=== PATIENT | male | born 1945 | race Caucasian/White ===

== ENCOUNTER 2019-12-14 10:34 | Outpatient (CLI) | payer MEDICARE, OTHER, SELFPAY ==
--- NOTE | 2019-12-14 10:48 | XR_ITS ---
WS: [id number] RIGHT ANKLE: 3 VIEW(S) TECHNIQUE: AP, oblique(s) and lateral. HISTORY: PAIN IN RIGHT ANKLE AND JOINTS OF RIGHT FOOT COMPARISON: None available. Normal anatomic alignment with no fracture or dislocation. No joint effusion or widening of the ankle mortise. Several small osseous densities at the ankle joint with narrowing of the ankle joint. Osteochondral l esion well-corticated involving the lateral dome of the talus. No soft tissue abnormality. XR/XR ankle RT min 3V* [id number] IMPRESSION: 1. No acute fracture. 2. Mild degenerative changes at the ankle joint and a well-corticated osteocho ndral lesion lateral talar dome.
== END 2019-12-14 10:35 | disposition home or self-care (01) ==
LOC: RADWPI 10:41
PROVIDERS: Family Provider Family Medicine; PCP Family Medicine; Visit Provider Nurse Practitioner Family
DX: M25.571 Pain in right ankle and joints of right foot (principal); M19.071 Primary osteoarthritis, right ankle and foot
CPT/HCPCS: 73610

== ENCOUNTER → 2020-01-17 08:22 | Outpatient (BNVA) | payer MEDICARE, OTHER, SELFPAY | PROVIDERS: Family Provider Family Medicine; PCP Family Medicine; Referring Provider Nurse Practitioner Family; Visit Provider Podiatrist Foot & Ankle Surgery | DX: M79.671 Pain in right foot (principal); M25.571 Pain in right ankle and joints of right foot; Z46.89 Encounter for fitting and adjustment of other specified devices; M19.071 Primary osteoarthritis, right ankle and foot | CPT/HCPCS: 73610; 73630; L1902 ==

== ENCOUNTER 2020-01-17 10:07 | Outpatient (CLI) | payer MEDICARE, OTHER, SELFPAY | END 2020-01-17 10:08 | disposition home or self-care (01) | LOC: SPT 10:08 | PROVIDERS: Family Provider Family Medicine; PCP Family Medicine; Visit Provider Podiatrist Foot & Ankle Surgery | DX: Z46.89 Encounter for fitting and adjustment of other specified devices (principal); M19.071 Primary osteoarthritis, right ankle and foot | CPT/HCPCS: L1902 ==

== ENCOUNTER 2021-03-06 12:47 | Outpatient (CLI) | payer MEDICARE, OTHER, SELFPAY ==
--- NOTE | 2021-03-06 13:00 | MR_ITS ---
WS: [id number] MRI BRAIN WITH HIGH-RESOLUTION IMAGING THROUGH THE INTERNAL AUDITORY CANALS WITHOUT AND WITH CONTRAST HISTORY: SENSORINEURAL HEARING LOSS, bilateral hearing loss for 3 to 4 years. COMPARISON: None available. TECHNIQUE: Multiplanar, multisequence imaging is performed through the brain. Additional 3 mm imaging performed in multiple planes through the internal auditory canal. Postcontrast imaging with 20 ml's of MultiHance. No acute intracranial hemorrhage, midline shift, edema or mass effect. Mild chronic microvascular ischemic disease. Subcortical and deep white matter microvascular ischemic changes. Small amount of microvascular ischemic disease in the rodrigo bilaterally. No prior infarcts. Small lacunar infarct LEFT insular ribbon. Mild bilateral symmetric atrophy. Ventricles and extra-axial spaces are normal. No inferior displacement of cerebellar tonsils. Clivus and pituitary gland are normal. Internal and external auditory canals: Soft tissue mass centered within the RIGHT intracanalicular an d extracanalicular portion of the RIGHT internal auditory canal. Mass is slightly lobulated extending over a width of 8.4 mm x 6.7 mm. No abnormal signal in the LEFT internal auditory canal. Paranasal sinuses: Mild mucoperiosteal thickening throughout the paranasal sinuses. No air-fluid leve ls. Mastoid air cells: Bilateral mastoid air cell effusions, greatest on the LEFT. Calvarium and scalp: Normal. Visualized [place] and dural venous sinuses demonstrate no abnormality. MR/MR iac's wo/w con* [id number] IMPRESSION: 1. RIGHT vestibular schwannoma involving portions of the intracanalicular and extracanalicular portions of the internal auditory canal. Enhancing soft tissue lobulated mass measures 8.4 x 6.7 mm. 2. Normal LEFT internal auditory canal. 3. Mild chronic microvascular ischemic changes in the supratentorial white mat ter and the rodrigo.
[2021-03-06 13:42] LABS: Blood Urea Nitrogen 18 mg/dL (8-23)
[2021-03-06] MEDS: gadobenate dimeglumine 20 mL vial IV (13:44)
== END 2021-03-06 12:48 | disposition home or self-care (01) ==
PROVIDERS: PCP Family Medicine; Visit Provider Otolaryngology
DX: H90.3 Sensorineural hearing loss, bilateral (principal); D36.10 Benign neoplasm of peripheral nerves and autonomic nervous system, unspecified
CPT/HCPCS: 70553; 82565; 84520; A9577

== ENCOUNTER 2021-08-24 11:00 | Outpatient (CLI) | payer MEDICARE, OTHER, SELFPAY ==
--- NOTE | 2021-08-24 11:07 | XR_ITS ---
WS: [id number] Right ankle, 3 views, 08/24/2021 Clinical Data: CHRONIC PAIN OF R ANKLE JOINTS Comparison: None. Findings: No fractures or dislocations are seen. The ankle mortise is normal. The talus and calcaneus are unrem arkable. No soft tissue swelling over the medial or lateral malleolus is seen. There is minimal calcification of the terrell of small vessels. There are unfused ossicles inferior to the tip of the medial malleolus. There is a plantar spur. No periarticular demineralization is seen. XR/XR ankle RT min 3V* [id number] Impression: Negative right ankle.
--- NOTE | 2021-08-24 11:07 | XR_ITS ---
WS: [id number] Right foot, 3 views, 08/24/2021 Clinical Data: CHRONIC PAIN IN R FOOT Comparison: None. Findings: No fractures or dislocations are seen. No bone destruction or erosion is noted. The joint spaces and soft tissues are normal. No periarticular demineralization or calcifications are seen. There is a plantar spur. XR/XR foot RT min 3V* [id number] Impression: Negative right foot.
== END 2021-08-24 11:01 | disposition home or self-care (01) ==
LOC: RAD 11:06
PROVIDERS: PCP Nurse Practitioner; Visit Provider Nurse Practitioner
DX: M79.671 Pain in right foot (principal); M25.571 Pain in right ankle and joints of right foot; G89.29 Other chronic pain
CPT/HCPCS: 73610; 73630

== ENCOUNTER 2021-11-01 07:22 | Outpatient (CLI) | payer MEDICARE, OTHER, SELFPAY ==
--- NOTE | 2021-11-01 07:48 | USCV_ITS ---
Teja Elizabeth Age: 76 Gender: M : 1945 Exam Date: 11/01/2021 07:52 Ordering Phys: Haydee Rodriguez APN Technologist: aLurie Watts Exam Location: [facility] – [place], [place] Indication: SCREENING FOR AAA HISTORY: Screening for AAA Diameter (cm) AP x Transverse x Length Velocity (cm/s) Waveform Prox Aorta: 1.78 x 2.13 x 130.30 Mid Aorta: 1.92 x 2.25 x 104.00 Distal Aorta: 1.78 x 2.01 x 94.30 Right Iliac Prox: 1.09 x 1.50 x 94.30 Left Iliac Prox: 0.98 x 1.56 x 79.00 Stent Prox Landing x x Aneurysmal Sac Max x x Lt Lat Sac Dim Rt Lat Sac Dim Stent Dist Landing x x Right Iliac Stent x x Left Iliac Stent x x Right Renal Art Left Renal Art FINDINGS: CONCLUSIONS No evidence of abdominal aortic or bilateral iliac aneurysm. Alvino Saldivar MD (Electronically Signed) Final Date: 01 November 2021 12:46 S
== END 2021-11-01 07:23 | disposition home or self-care (01) ==
PROVIDERS: PCP Nurse Practitioner; Visit Provider Nurse Practitioner
DX: Z13.6 Encounter for screening for cardiovascular disorders (principal)
CPT/HCPCS: 76706

== ENCOUNTER 2021-11-06 10:11 | Outpatient (CLI) | payer MEDICARE, OTHER, SELFPAY ==
[2021-11-06 10:28] VITALS: BP 163/79; PULSE 66; RESP 17; TEMP 36.6; O2SAT 95; BMI 33.4
[2021-11-06 11:14] VITALS: BP 171/83; PULSE 65; RESP 18; TEMP 36.5; O2SAT 94
[2021-11-06 12:14] VITALS: BP 158/83; PULSE 66; RESP 17; TEMP 36.4; O2SAT 96
== END 2021-11-06 12:14 | disposition home or self-care (01) ==
LOC: OPS 10:17
PROVIDERS: PCP Nurse Practitioner; Visit Provider Nurse Practitioner Family
DX: U07.1 COVID-19 (principal)
CPT/HCPCS: 96365

== ENCOUNTER → 2021-11-15 14:12 | Outpatient (BNVA) | payer MEDICARE, OTHER, SELFPAY | PROVIDERS: PCP Nurse Practitioner; Referring Provider Nurse Practitioner; Visit Provider Surgery | DX: Z11.52 Encounter for screening for COVID-19 (principal); K92.1 Melena | CPT/HCPCS: 87635 ==

== ENCOUNTER 2022-01-17 08:52 | Day surgery (SDC) | payer MEDICARE, OTHER, SELFPAY ==
[2022-01-14 14:04] VITALS: BMI 33.7
--- NOTE | 2022-01-17 09:18 | ANES.PREANE2 ---
Pre-Anesthetic Assessment Height/Weight: Height 1.73 m Weight 100.698 kg Preop Diagnosis: Blood in stool Operation Date: 01/17/22 10:30 Proposed Procedures p Colonoscopy 75401/k92.1(Not Applicable) - Jeremias Roberts MD Familial anesthetic complications: None Was Beta Ana taken within 24 hours: N/A Was Clonidine taken within 24 hours: N/A Social No alcohol and No tobacco Exam alert, oriented x 3, clear to auscultation bilaterally and regular rate & rhythm Airway Submandibular: within normal limits Cervical ROM: Other (Very limited extension) Mallampati: Class III Dentition: false CV/HEM Hypertension and Murmur Metabolic Morbid Obesity [facility] Osteoarthritis/DJD Anesthetic Plan ASA status: 2 Anesthesia: MAC Risk of > 500 ml blood loss (7ml/kg in children): No Medications/Allergies Home Medications Medication Instructions Recorded Confirmed Last Taken Type amlodipine 10 mg tablet 10 mg PO DAILY 01/17/20 01/14/22 Unknown History duloxetine 30 mg capsule,delayed 30 mg PO DAILY 01/17/20 01/14/22 Unknown History release hydrochlorothiazide 12.5 mg capsule 12.5 mg PO DAILY 01/17/20 01/14/22 Unknown History ibuprofen 800 mg tablet 800 mg PO DAILY 01/17/20 01/14/22 Unknown History lisinopril 10 mg tablet 10 mg PO DAILY 01/17/20 01/14/22 Unknown History terbinafine HCl 250 mg tablet 250 mg PO DAILY #30 tab 12/07/21 01/14/22 Unknown Rx Allergies Allergy/AdvReac Type Severity Reaction Status Date / Time No Known Allergies Allergy Verified 01/09/22 08:23 [facility] Anesthesia Medical History Arthritis Hypertension Surgical History History of shoulder surgery Family History Other Cancer Diabetes Social History Smoking and tobacco status: former smoker Alcohol intake: never Household members: spouse Marital status: Current occupational status: employed Current occupation: [employer] Anesthesia Cardiac Studies: No Data to Display
[2022-01-17 09:29] VITALS: BP 195/97; PULSE 70; RESP 18; TEMP 36.6; O2SAT 97
[2022-01-17] MEDS: sodium chloride 0.9% 1,000 ML 30 ML IV (09:34)
--- NOTE | 2022-01-17 09:39 | P.HP_ITS ---
Same Day Surgery H&P Indication for Procedure/HPI DATE OF PROCEDURE: January 17, 2022 CHIEF COMPLAINT/INDICATIONFOR SURGICAL PROCEDURE: Blood in stool PREOP DIAGNOSIS: Blood in stool PLANNED PROCEDURE: Operation Date: 01/17/22 10:30 Proposed Procedures p Colonoscopy 00996/k92.1(Not Applicable) - Jeremias Roberts MD 11/15/21 This is a pleasant 76 years old gentleman comes today escorted by his gives history of colon polyps that he had a colonoscopy many years ago. Also he reports blood in stool. Denies history of colon cancer or weight loss. 01/07/22 Patient comes today for diagnostic colonoscopy ROS All systems all systems have been reviewed negative except as per the above or per problem list Medications/Allergies* Home Medications Medication Instructions Recorded Confirmed Type amlodipine 10 mg tablet 10 mg PO DAILY 01/17/20 01/14/22 History duloxetine 30 mg capsule,delayed 30 mg PO DAILY 01/17/20 01/14/22 History release hydrochlorothiazide 12.5 mg capsule 12.5 mg PO DAILY 01/17/20 01/14/22 History ibuprofen 800 mg tablet 800 mg PO DAILY 01/17/20 01/14/22 History lisinopril 10 mg tablet 10 mg PO DAILY 01/17/20 01/14/22 History Allergies/Adverse Reactions Allergy/AdvReac Type Severity Reaction Status Date / Time No Known Allergies Allergy Verified 01/17/22 09:40 Current Medications: Generic Name Dose Route Start Last Admin Trade Name Freq PRN Reason Stop Dose Admin Sodium Chloride 1,000 mls @ 30 mls/hr 01/17/22 09:15 01/17/22 09:34 Sodium Chloride 0.9% IV 30 mls/hr .Q24H CARI Administration Pertinent History/Comorbid Conditions* Medical History (Updated 12/02/21 @ 12:20 by Kyle Ovalles DPM) Arthritis Hypertension Surgical History (Updated 01/19/20 @ 20:37 by Kyle Ovalles DPM) History of shoulder surgery Family History (Updated 01/17/20 @ 08:13 by Lilly Ojeda LPN) Diabetes Cancer Social History Smoking and tobacco status: former smoker Alcohol intake: never Household members: spouse Marital status: Current occupational status: employed Current occupation: [employer] Pertinent Exam Findings alert, oriented x 3, regular rate & rhythm and procedure specific exam findings (Abdominal examination nontender nondistended soft,ruq scar) Recommendations Surgery/Procedure today (Colonoscopy with possible biopsy) Coding Level of Care Code Acute Vehicle Calibration Engineer for Abdiel Moreno
[2022-01-17 12:02] VITALS: BP 138/70; PULSE 72; RESP 13; TEMP 36.6; O2SAT 93
[2022-01-17 12:19] VITALS: BP 147/91; PULSE 71; RESP 16; O2SAT 94
--- NOTE | 2022-01-17 12:35 | ANE.PACU2 ---
Inpatient post-anesthesia follow up: Airway intact: Yes Vital signs: Temperature 97.9 F Pulse Rate 71 Respiratory Rate 16 Blood Pressure 147/91 Pulse Oximetry 94 Oxygen Delivery Me thod Room Air Oxygen Flow Rate Fraction of Inspir ed Oxygen Hydration adequate: Yes Nausea and vomiting: No Pain level: 1 Mental status: Baseline
== END 2022-01-17 12:30 | disposition home or self-care (01) ==
PROVIDERS: PCP Nurse Practitioner; Visit Provider Surgery
PROC: 0DJD8ZZ Inspection of Lower Intestinal Tract, Via Natural or Artificial Opening Endoscopic (ICD-10-PCS; CPT 45378; principal; 2022-01-17 10:30)
DX: K92.1 Melena (principal); M19.90 Unspecified osteoarthritis, unspecified site; I10 Essential (primary) hypertension; Z87.891 Personal history of nicotine dependence; K57.30 Diverticulosis of large intestine without perforation or abscess without bleeding; E66.01 Morbid (severe) obesity due to excess calories; Z68.33 Body mass index [BMI] 33.0-33.9, adult
CPT/HCPCS: 45378; J2704; J7030

== ENCOUNTER → 2022-01-30 09:41 | Outpatient (BNVA) | payer MEDICARE, OTHER, SELFPAY | PROVIDERS: PCP Nurse Practitioner; Visit Provider Surgery | DX: K57.90 Diverticulosis of intestine, part unspecified, without perforation or abscess without bleeding (principal) | CPT/HCPCS: 99213 ==

== ENCOUNTER 2022-03-03 11:10 | Inpatient (IN) | payer MEDICARE, OTHER, SELFPAY ==
[2022-03-03] VITALS (9 sets, daily range): BP systolic 145–185; BP diastolic 69–99; PULSE 57–100; RESP 16–17; TEMP 36.6–36.9; O2SAT 94–98
--- NOTE | 2022-03-03 11:28 | ECG_ITS ---
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 Measurements Intervals [place] Rate: 62 P: 82 VT: 195 QRS: -12 QRSD: 97 T: 60 QT: 326 QTc: 332 Interpretive Statements SINUS RHYTHM INCOMPLETE RIGHT BUNDLE BRANCH BLOCK [90+ ms QRS DURATION, TERMINAL R IN V1/V2, 40+ ms S IN I/aVL/V4/V5/V6] NONSPECIFIC ST & T-WAVE ABNORMALITY Compared to ECG 03/03/2022 11:20:08 No significant changes Electronically Signed On 03-04-2022 17:38:39 CDT by Kori Byrd M.D. [id number]
--- NOTE | 2022-03-03 11:28 | XRR_ITS ---
PROCEDURE INFORMATION: Exam: XR Chest Exam date and time: 03/03/2022 11:34 AM Age: 76 years old Clinical indication: Pain; Chest pressure; Additional info: Chest pain TECHNIQUE: Imaging protocol: XR of the chest. Views: 1 view. COMPARISON: CT neck w con* [id number] 10/26/2015 3:06 PM FINDINGS: Lungs: Unremarkable. No consolidation. Pleural spaces: Unremarkable. No pleural effusion. No pneumothorax. Heart/Mediastinum: Unremarkable. No cardiomegaly. Bones/joints: Unremarkable. XR/XR chest 1V portable [id number] IMPRESSION: No acute findings.
--- NOTE | 2022-03-03 11:28 | W.ED.CHESTPA ---
HPI - Chest Pain General: Chief Complaint: Chest Pain Stated Complaint: high BP/heaviness in chest Time Seen by Provider: 03/03/22 11:25 PFSH ED PFSH: Medical History Arthritis Hypertension Surgical History History of shoulder surgery Family History Other Cancer Diabetes Social History Smoking and tobacco status: former smoker Alcohol intake: never Household members: spouse Marital status: Current occupational status: employed Current occupation: [employer] Vital Signs: Vital signs: Vital Signs Temperature 98.0 F 03/03/22 11:18 Pulse Rate 70 03/03/22 11:26 Respiratory Rate 16 03/03/22 11:26 Blood Pressure 185/94 03/03/22 11:26 Pulse Oximetry 97 03/03/22 11:26 Discharge Plan Discharge Patient Disposition: Admitted As Inpatient Clinical Impression: Chest pain Condition: Stable Coding Level of Care Code ED Senior Geotechnical Engineer for Abdiel Moreno
--- NOTE | 2022-03-03 11:38 | W.ED.GENADLT ---
HPI - General Adult General: Chief complaint: Chest Pain Stated complaint: high BP/heaviness in chest Time Seen by Provider: 03/03/22 11:25 History of Present Illness: CC: Chest Pain HPI: This is a [76] yo patient hx of HTN, dm presenting to the ED w/ acute onset intermittent substernal chest pain X 6 days . Pain is a very typical prior presentation of cardiac chest pain. Has shortness of breath worse with exertion for the last 6 days. Pain is not tearing in nature and does not radiate to the back. Endorse nausea but has no associated with vomiting or decreased PO intake. Denies any recent sympathomimetic drug use. Patient denies any cough. Denies palpitations, syncope symptoms. Pain not positional. Norecent immobility, surgery, unilateral leg swelling, or prior PE. Patient denies any orthopnea, paroxysmal nocturnal dyspnea, weight gain, or increased leg swellings. Onset: 6 days ago Duration: ongoing intermittent at rest lasting for 15 minutes at a time Location: home Severity: moderate Associated symptoms: Reports chest pain; Deny dyspnea, nausea, rash, palpitations or vomiting Review of Systems Const: Denies: fever(s) or chills Eyes: Denies: change in vision ENMT: Denies: mouth pain Card: Reports: chest pain; Denies: palpitations Resp: Denies: dyspnea or non-productive cough GI: Denies: abdominal pain, nausea, vomiting or diarrhea : Denies: dysuria Musc: Denies: extremity pain Skin/Breast: Denies: rash or new lesions Neuro: Reports: other (+light-headedness); Denies: weakness in extremities Psych: Reports: other (Normal mood) Behzad/Lymph: Denies: easy bruising PFSH ED PFSH: Medical History Arthritis Hypertension Surgical History History of shoulder surgery Family History Other Cancer Diabetes Social History Smoking and tobacco status: former smoker Alcohol intake: never Household members: spouse Marital status: Current occupational status: employed Current occupation: [employer] Exam Const: COMMON NORMALS: alert HENMT: COMMON NORMALS: atraumatic HEAD & SCALP: atraumatic MOUTH: moist mucous membranes not abnormal Eye: COMMON NORMALS: EOMs intact bilaterally and conjunctivae normal CONJUNCTIVA: Yes conjunctivae normal Neck/C-Spine: COMMON NORMALS: full ROM and supple Resp: COMMON NORMALS: normal respiratory effort and clear to auscultation bilaterally AUSCULTATION: clear to auscultation bilaterally Cardio: COMMON NORMALS: regular rate RATE: regular rate OTHER: 2+ radial pulses b/l GI: COMMON NORMALS: Soft to palpation and non-tender PALPATION: Yes Soft to palpation Extremity: COMMON NORMALS: full ROM OTHER: no john sign Neuro: SENSORIUM/ORIENTATION: Yes alert MOTOR EXAM: No Abnormal motor strength present and Other motor observations present (no focal motor deficits) Psych: COMMON NORMALS: speech normal SPEECH: Yes normal speech MOOD & AFFECT: Yes euthymic mood Course Vital Signs: Vital signs: Vital Signs Temperature 98.0 F 03/03/22 11:18 Pulse Rate 63 03/03/22 12:21 Respiratory Rate 17 03/03/22 12:21 Blood Pressure 152/94 03/03/22 12:21 Pulse Oximetry 95 03/03/22 12:21 MDM - General Adult Medical Decision Making [76]yo patient w/ hx of DM, HTN presenting to the ED With acute substernal chest pain X 6 days worsening with exertion and present at rest. Currently mild chest pain. Given History And Exam today I have moderate to high suspicion for ACS/UA/NSTEMI. Today, I have NO suspicion for pneumothorax, pneumonia, pulmonary embolus, tamponade, aortic dissection or other emergent problem as a cause for this presentation. ECG did not show any signs of acute STEMI. Workup: ECG x 2, CXR, CBC, BMP, Troponin x 2 Intervention: ASA 325mg, SL nitroglycerin Findings: ECG: No overt evidence of STEMI, hyperacute T waves, localizable STD or T wave inversions. No evidence of Brugada?s sign, delta wave, epsilon wave, significantly prolonged QTc, or malignant arrhythmia. No Q waves. Troponin: Negative x 1 Other Labs unremarkable for emergent problems. CXR: Without PTX, PNA, or widened mediastinum HEART score: 5 [12:45pm] On reassessment, the patient us 2/10 in terms of chest pain. S/p aspirin 325mg. Will defer antiplatelet and anticoagulation to the inpatient team. Pending repeat troponin. HDS, AAOx3, no signs of respiratory distress, without refractory chest pain, no signs of malignant dysrhythmia on equipment monitor phototypesetting (VT/VF). Disposition: Inpatient admission. Lab Data : 03/03/22 11:20 03/03/22 11:20 Radiology Impressions Chest X-Ray 03/03/22 11:28 IMPRESSION: No acute findings. Laboratory Results WBC 6.7 10^3/uL (4.0-10.0) 03/03/22 11:20 RBC 4.58 10^6/uL (4.1-5.3) 03/03/22 11:20 Hgb 14.6 g/dL (11.7-16.6) 03/03/22 11:20 Hct 41.2 % (42.0-52.0) L 03/03/22 11:20 MCV 90.0 fl (80-94) 03/03/22 11:20 MCH 31.9 pg (28.0-34.0) 03/03/22 11:20 MCHC 35.4 g/dL (30.0-36.0) 03/03/22 11:20 RDW 12.2 % (12.1-15.1) 03/03/22 11:20 Plt Count 170 10^3/cmm (130-400) 03/03/22 11:20 MPV 12.0 fL (7.4-10.4) H 03/03/22 11:20 Neut % (Auto) 51.7 % 03/03/22 11:20 Lymph % (Auto) 35.8 % 03/03/22 11:20 [place] % (Auto) 5.9 % 03/03/22 11:20 Eos % (Auto) 5.3 % 03/03/22 11:20 Baso % (Auto) 0.8 % 03/03/22 11:20 Neut # (Auto) 3.45 10^3/uL (1.8-7.7) 03/03/22 11:20 Lymph # (Auto) 2.4 10^3/uL (0.8-4.8) 03/03/22 11:20 [place] # (Auto) 0.4 10^3/uL (0.2-0.9) 03/03/22 11:20 Eos # (Auto) 0.4 10^3/uL (0.0-0.8) 03/03/22 11:20 Baso # (Auto) 0.1 10^3/uL (0.0-0.1) 03/03/22 11:20 Nucleated RBC % (auto) 0 % 03/03/22 11:20 Nucleated RBCs # 0.0 /100WBC 03/03/22 11:20 Sodium 138 mmol/L (136-145) 03/03/22 11:20 Potassium 3.5 mmol/L (3.5-5.1) 03/03/22 11:20 Chloride 98 mmol/L (98-107) 03/03/22 11:20 Carbon Dioxide 26 mmol/L (22-29) 03/03/22 11:20 Anion Gap 17.5 (5-19) 03/03/22 11:20 BUN 15 mg/dL (8-23) 03/03/22 11:20 Creatinine 0.6 mg/dL (0.7-1.2) L 03/03/22 11:20 GFR Calculation Not Reportable 03/03/22 11:20 Glucose 197 mg/dL (65-115) H 03/03/22 11:20 Calculated Osmolality 292 mOsm/kg (285-295) 03/03/22 11:20 Calcium 9.6 mg/dL (8.5-10.5) 03/03/22 11:20 Troponin T Baseline 14 ng/L (0-15) 03/03/22 11:20 Discharge Plan Discharge Patient Disposition: Admitted As Inpatient Clinical Impression: Chest pain Condition: Stable Coding Level of Care Code ED Log Roller for Abdiel Fwd Exam Comprehensive
[2022-03-03] MEDS: aspirin 325 mg Tablet PO (11:39)
[2022-03-03 11:56] LABS: Troponin(5th) Baseline 14 ng/L (0-15)
[2022-03-03 12:09] LABS: Basophils # 0.1 10^3/uL (0.0-0.1); Basophils % 0.8 %; Eosinophils # 0.4 10^3/uL (0.0-0.8); Eosinophils % 5.3 %; Hematocrit 41.2 % (42.0-52.0); Hemoglobin 14.6 g/dL (11.7-16.6); Lymphocytes # 2.4 10^3/uL (0.8-4.8); Lymphocytes % 35.8 %; Mean Corpuscular HGB Conc 35.4 g/dL (30.0-36.0); Mean Corpuscular Hemoglobin 31.9 pg (28.0-34.0); Monocytes # 0.4 10^3/uL (0.2-0.9); Monocytes % 5.9 %; Neutrophils # 3.45 10^3/uL (1.8-7.7); Neutrophils % 51.7 %; Nucleated Red Blood Cells % 0 %; Platelet Count 170 10^3/cmm (130-400); Red Blood Count 4.58 10^6/uL (4.1-5.3); Red Cell Distribution Width 12.2 % (12.1-15.1); White Blood Count 6.7 10^3/uL (4.0-10.0)
[2022-03-03 12:23] LABS: Blood Urea Nitrogen 15 mg/dL (8-23); Calcium 9.6 mg/dL (8.5-10.5); Carbon Dioxide 26 mmol/L (22-29); Chloride 98 mmol/L (98-107); Glucose 197 mg/dL (65-115); Osmolality Calculated 292 mOsm/kg (285-295); Sodium 138 mmol/L (136-145)
[2022-03-03] MEDS: nitroglycerin 0.4 mg sublingual Tablet SUBLINGUAL (12:24)
[2022-03-03 12:29] LABS: Anion Gap 17.5 (5-19)
[2022-03-03 12:30] LABS: Potassium 3.5 mmol/L (3.5-5.1)
[2022-03-03] MEDS: amlodipine 5 mg Tablet PO (12:30)
[2022-03-03 13:58] LABS: Troponin 5 2HR 11.81 ng/L (0-15)
[2022-03-03 14:41] LABS: Troponin 5 2HR Delta -2.19 ABS# (0-10)
--- NOTE | 2022-03-03 14:51 | USCV_ITS ---
Teja Elizabeth Age: 76 Gender: M : 1945 Exam Date: 03/03/2022 15:26 Ordering Phys: Michelle Vyas MD Technologist: Laurie Watts Exam Location: [facility] [place] Indication: CHEST PAIN BP: 154 / 94 HR: 59 Rhythm: Sinus Technical Quality: Adequate MEASUREMENTS (Male / Female) Normal Values 2D ECHO LV Diastolic Diameter PLAX 4.2 cm 4.2 - 5.9 / 3.9 - 5.3 cm LV Systolic Diameter PLAX 2.8 cm LV Chamber Size 2.4 cm IVS Diastolic Thickness 1.4 cm 0.6 - 1.0 / 0.6 - 0.9 cm IVS Systolic Thickness 2.1 cm LVPW Diastolic Thickness 1.9 cm 0.6 - 1.0 / 0.6 - 0.9 cm LVPW Systolic Thickness 1.8 cm RV Chamber Size 3.6 cm LVOT Diameter 2.0 cm LV Ejection Fraction 2D Teich 64.3 % LV Ejection Fraction MOD 2C 60.3 % LV Ejection Fraction 2C AL 59.0 % LA Diameter 3.0 cm LA Width 3.3 cm LA Height 4.0 cm RA Width 3.7 cm RA Height 4.6 cm Aorta at Sinotubular Diameter 3.4 cm IVC Diameter 2.0 cm M-MODE Aortic Annulus Diameter 4.0 cm LA Ao Ratio MM 0.8 MV E Point Septal Separation 0.5 cm DOPPLER AV Peak Velocity 187.0 cm/s LVOT Peak Velocity 141.0 cm/s AV Area Cont Eq vti 2.9 cm squared AV Area Cont Eq pk 2.4 cm squared MV Area PHT 2.7 cm squared Mitral E to A Ratio 0.7 MV E' Velocity 43.5 cm/s Mitral E to MV E' Ratio 17.7 Mitral E to LV E' Lateral Ratio 18.9 Mitral E to LV E' Septal Ratio 16.7 TR Peak Velocity 242.6 cm/s TR Peak Gradient 23.5 mmHg TR Mean Velocity 198.9 cm/s TR Mean Gradient 18.1 mmHg TR Velocity Time Integral 79.0 cm TV Peak E Velocity 59.0 cm/s Right Atrial Pressure 3.0 mmHg Pulmonary Artery Systolic Pressu 26.5 mmHg PV Peak Velocity 64.0 cm/s RV Acceleration Time 0.2 s RV Ejection Time 0.4 s RV AcT/ET 0.7 FINDINGS Left Ventricle Normal left ventricular size, systolic function and wall thickness, with no regional wall motion abnormalities. Left ventricular ejection fraction is estimated at 65%. Grade II diastolic dysfunction, moderately elevated filling pressures. Right Ventricle Normal right ventricular size and systolic function. Right ventricular systolic pressure 26.5 mmHg. Right Atrium Normal right atrial size. Left Atrium Normal left atrial size. Mitral Valve Structurally normal mitral valve. No mitral valve stenosis.Trace mitral valve regurgitation. Aortic Valve Aortic valve not well visualized. No aortic valve stenosis. No aortic valve regurgitation. Tricuspid Valve Structurally normal tricuspid valve. No tricuspid valve stenosis. Trace tricuspid valve regurgitation. Pulmonic Valve Pulmonic valve not well visualized. Trace pulmonary valve regurgitation. Pericardium No pericardial effusion. Aorta Normal size aortic root. CONCLUSIONS 1. Normal left ventricular size, systolic function and wall thickness, with no regional wall motion abnormalities. Left ventricular ejection fraction is estimated at 65%. Grade II diastolic dysfunction, moderately elevated filling pressures. 2. Normal right ventricular size and systolic function. 3. Normal pulmonary artery pressure. 4. No prior similar studies to compare. Kori Byrd MD (Electronically Signed) Final Date: 03 Mar 2022 18:35 S
[2022-03-03 15:23] LABS: Estmated Average Glucose 140; Hemoglobin A1C 6.5 % (4.0-6.0)
[2022-03-03 15:30] LABS: Chol HDL Ratio 5.39 mg/dL (1.0-5.00); Cholesterol 167 mg/dL (0-200); HDL Cholesterol 31 mg/dL (60-100); LDL Cholesterol Calculated 101 mg/dL (50-129); LDL HDL Ratio 3.26 RATIO (0.00-3.22); Thyroid Stimulating Hormone 1.21 uIU/mL (0.27-4.20); Triglycerides 175 mg/dL (0-150)
--- NOTE | 2022-03-03 15:31 | P.HP_ITS ---
Providers/Chief Complaint Admitting Physician: Michelle Vyas MD Primary Care Provider: Haydee Rodriguez APN Chief Complaint: high BP/heaviness in chest History of Present Illness Teja Elizabeth is a 76 year old male with past medical history of arthritis, hypertension, diabetes mellitus presented to the hospital with complaint of high blood pressure that has been going on for the last few days. Patient and his state that since Friday he has been feeling unwell and had a cough in itially. He went to his primary care nurse practitioner and initially some blood work was obtained. states that possibly his white blood cell count was high and they were called on the phone and prescribed doxycycline. She also took 2 COVID tests for him at home which were negative. 1 time he had a temperature of 99.6. Other than the cough and his temperature he felt fine. Also at times he states that he has been having this chest tightness that has been constant at some instances and sometimes comes and goes. It is worsened with exertion and is present at rest. When I saw the patient he was not having any more chest pain. However in the ER he did report having chest pain. He did receive sublingual nitroglycerin and 325 aspirin which made him feel better. Patient has never had a cardiac work-up before. EKG did not show any T wave changes or evidence of STEMI, no Q waves. First troponin negative. Chest x-ray did not show evidence of pneumonia or widened mediastinum. Heart score 5. Second and third troponin are pending. Patient's blood pressure has been running 150s to 170s over 80s to 90s with few instances of 203/99, 179/92. Also on February 26 his existing lisinopril 10 mg daily was increased to 20 mg daily. Since then family has been monitoring blood pressure. They are checking 4 times a day. Blood pressure 1 50-1 70 range systolic over 80-90 diastolic with a few instances of 196/92, 180/94, 193/105. Otherwise patient feels well. Review of systems negative except noted in HPI Medications/Allergies Home Medications Medication Instructions Recorded Confirmed Last Taken Type amlodipine 10 mg tablet 10 mg PO DAILY 01/17/20 03/03/22 03/03/22 History duloxetine 30 mg capsule,delayed 30 mg PO DAILY 01/17/20 03/03/22 03/03/22 History release hydrochlorothiazide 12.5 mg capsule 12.5 mg PO DAILY 01/17/20 03/03/22 03/03/22 History ibuprofen 800 mg tablet 800 mg PO DAILY PRN 01/17/20 03/03/22 01/16/22 History lisinopril 10 mg tablet 10 mg PO DAILY 01/17/20 03/03/22 03/03/22 History terbinafine HCl 250 mg tablet 250 mg PO DAILY #30 tab 12/07/21 03/03/22 03/03/22 Rx metformin 500 mg tablet 500 mg PO DAILY 01/30/22 03/03/22 03/03/22 History doxycycline hyclate 100 mg capsule 100 mg PO BID 03/03/22 03/03/22 03/03/22 History fluticasone propionate 50 2 spray INTRANASAL DAILY PRN 03/03/22 03/03/22 Unknown History mcg/actuation nasal spray,suspension Allergies Allergy/AdvReac Type Severity Reaction Status Date / Time No Known Allergies Allergy Verified 01/31/22 12:47 PFSH Acute PFSH: Medical History Arthritis Hypertension Surgical History History of shoulder surgery Family History Other Cancer Diabetes Social History Smoking and tobacco status: former smoker Alcohol intake: never Household members: spouse Marital status: Current occupational status: employed Current occupation: [employer] Vitals/I&O/Wt Last Vital Signs Temp 98.3 F 03/03/22 14:46 Pulse 63 03/03/22 14:49 Resp 17 03/03/22 14:49 BP 152/94 03/03/22 14:49 Pulse Ox 95 03/03/22 14:49 Weight last 48 hrs Weight 2.495 kg Physical Exam Narrative: General: Alert oriented x3, patient seen laying in bed appearing comfortable, wearing hearing aids breathing normally no acute distress. Denies any chest pain at this time. HEENT: Normocephalic, atraumatic, EOMI, Cardio: Regular rate rhythm, normal S1-S2, no murmurs Respiratory: Good bilateral air entry, no wheezes no rhonchi appreciated GI: Abdomen soft, nontender, nondistended, bowel sounds + Behavior: Appropriate and cooperative Extremities: no edema, no cyanosis Data : 03/03/22 11:20 03/03/22 11:20 A&P Assessment and plan (1) Uncontrolled hypertension: Status: Acute (2) Diabetes mellitus: Status: Acute (3) Chest pain: Status: Acute (4) Arthritis: Status: Acute Plan #Uncontrolled hypertension #Chest pain/chest tightness #Arthritis #Diabetes mellitus, A1c 6.5 ? A1c 6.5. We will continue metformin 500 daily ? Check lipid profile, TSH ? Check echo ? Stress test in a.m. patient's chest pain is very nonspecific and unsure if this is truly cardiac related. We will wait for troponin series. Low threshold to repeat EKG if he continues to have chest pain. Right now he is chest pain- free. ? For blood pressure I will stop his lisinopril since patient is also having a cough. Cough does not seem to be from an upper respiratory infection has a dry cough. I will start her on hydralazine 25 3 times daily, hydrochlorothiazide 12.5 daily, continue amlodipine 10 daily. We will see how her blood pressure does and will make changes accordingly. If blood pressure greater than 180 systolic we will use IV labetalol versus hydralazine. ? There is a possibility of postnasal drip as well. I will start patient on an antihistamine. -Check vitals every 4 hours. If needed will adjust hydralazine to increase but will gradually do that. I have asked the nurse to notify me with blood pressure readings. ? N.p.o. at midnight ? and son at bedside. All questions answered. Full code DVT prophylaxis: Lovenox Attestations Medical Necessity Statement*: Patient will cross 2 midnights due to complaint of uncontrolled hypertension and chest pain. He will have a stress test tomorrow. We will optimize blood pressure medications and discharge him once blood pressure is in a safer range. Coding Level of Care Code Acute Office Clerk Routine for g Fwd Diagnoses Uncontrolled hypertension I10 Diabetes mellitus E11.9 Chest pain R07.9 Arthritis M19.90
[2022-03-03] MEDS: enoxaparin 40 mg/0.4 mL Syringe SUBCUT (16:30)
--- NOTE | 2022-03-03 17:28 | ECG_ITS ---
[facility] Test Date: 2022-03-03 Pat Name: Teja Elizabeth Department: Room: Gender: Male Tire And Tube Repairer: : 1945 Requested By: Demar Dumont Order Number: [id number] Mckinley MD: Kori Byrd M.D. Measurements Intervals [place] Rate: 65 P: 75 MI: 183 QRS: -5 QRSD: 111 T: 66 QT: 407 QTc: 426 Interpretive Statements SINUS RHYTHM INCOMPLETE RIGHT BUNDLE BRANCH BLOCK [90+ ms QRS DURATION, TERMINAL R IN V1/V2, 40+ ms S IN I/aVL/V4/V5/V6] NONSPECIFIC T-WAVE ABNORMALITY No previous ECG available for comparison Electronically Signed On 03-03-2022 13:27:51 CDT by Kori Byrd M.D. [email or web address]
[2022-03-03 18:08] LABS: Troponin 5 6HR 14.89 ng/L (0-15)
[2022-03-03 18:28] LABS: Troponin 5 6HR Delta 0.89 ng/L (0-12)
[2022-03-03] MEDS: hyDRALAzine 25 mg Tablet PO (20:52)
[2022-03-04] VITALS (10 sets, daily range): BP systolic 124–182; BP diastolic 74–95; PULSE 56–102; RESP 16–17; TEMP 36.6–36.9; O2SAT 93–97
[2022-03-04 05:27] LABS: Basophils % 0.6 %; Eosinophils # 0.3 10^3/uL (0.0-0.8); Hematocrit 42.3 % (42.0-52.0); Hemoglobin 14.7 g/dL (11.7-16.6); Lymphocytes # 2.2 10^3/uL (0.8-4.8); Lymphocytes % 31.5 %; Mean Corpuscular HGB Conc 34.8 g/dL (30.0-36.0); Mean Corpuscular Hemoglobin 31.6 pg (28.0-34.0); Monocytes # 0.5 10^3/uL (0.2-0.9); Monocytes % 7.6 %; Neutrophils # 3.77 10^3/uL (1.8-7.7); Neutrophils % 54.9 %; Nucleated Red Blood Cells % 0 %; Platelet Count 237 10^3/cmm (130-400); Red Blood Count 4.65 10^6/uL (4.1-5.3); Red Cell Distribution Width 12.5 % (12.1-15.1); White Blood Count 6.9 10^3/uL (4.0-10.0)
[2022-03-04 05:37] LABS: Anion Gap 13.4 (5-19); Blood Urea Nitrogen 15 mg/dL (8-23); Calcium 9.4 mg/dL (8.5-10.5); Carbon Dioxide 31 mmol/L (22-29); Chloride 99 mmol/L (98-107); Glucose 112 mg/dL (65-115); Magnesium 2.1 mg/dL (1.7-2.3); Osmolality Calculated 292 mOsm/kg (285-295); Potassium 3.4 mmol/L (3.5-5.1); Sodium 140 mmol/L (136-145)
--- NOTE | 2022-03-04 07:39 | ECG_ITS ---
[facility] Test Date: 2022-03-04 Pat Name: Teja Elizabeth Department: Room: 278 Gender: Male Registered Respiratory Therapist: Saundra Chambers : 1945 Requested By: Kori Byrd Order Number: [id number] Mckinley MD: Kori Byrd M.D. Interpretive Statements NAME OF STUDY: EXERCISE SESTAMIBI STRESS TEST INDICATION: Chest Pain Baseline blood pressure of 171/98 mm Hg, heart rate 68 beats per minute and oxygen saturation 94%. EKG showed normal sinus rhythm, poor anterior R wave progression. Nonspecific T wave changes. The patient exercised for 7 minutes 39 seconds on a standard Bry protocol. Patient attained a maximum heart rate of 131 beats per minute(89% of the maximum predicted heart rate) with a blood pressure at the peak exercise of 189/73 mm Hg, oxygen saturation 92%. The EKG at the peak exercise revealed sinus tachycardia with no significant ST-T wave changes. Patient did not have any chest pain or any significant arrhythmis with the exercise. The study was terminated due to maximal effort. During the recovery phase, there were no new changes. Blood pressure at the end of the recovery phase was 182/95 mm Hg with a heart rate of 73 beats per minute and oxygen saturation 95%. Isolated PVCs noted in recovery CONCLUSION: 1. Normal EKG response to treadmill exercise. 2. No exercise-induced chest pain or cardiac arrhythmia 3. Excellent exercise tolerance, attained a maximum of 10.2 METs. Maximum VO2 of 35.7 mL/kg/min. 4. Baseline hypertension with normal response to exercise. 5. Perfusion scan will be documented separately. Electronically Signed On 03-04-2022 13:19:11 CDT by Kori Byrd M.D. [id number]
[2022-03-04] MEDS: metformin 500 mg Tablet PO (10:21)
[2022-03-04] MEDS: hyDRALAzine 25 mg Tablet PO ×3 (10:22→21:57)
[2022-03-04] MEDS: potassium chloride ER 20 mEq Tablet 40 MEQ PO (10:23)
[2022-03-04] MEDS: amlodipine 10 mg Tablet PO (10:23)
[2022-03-04] MEDS: hydroCHLOROthiazide 25 mg Tablet 12.5 MG PO ×2 (10:23→14:38)
[2022-03-04] MEDS: loratadine 10 mg Tablet PO (10:23)
--- NOTE | 2022-03-04 12:57 | P.PN_ITS ---
Subjective Subjective: This AM after stress test. Patient states he feels well and has no complaints. Blood pressure this morning was 180/95. His medications have been adjusted further. updated at bedside. Denies chest pain, shortness of breath. Vitals/I&O/Wt Last Vital Signs Temp 98.0 F 03/04/22 11:12 Pulse 72 03/04/22 11:12 Resp 17 03/04/22 11:12 BP 163/81 03/04/22 11:12 Pulse Ox 93 03/04/22 11:12 03/03/22 03/04/22 03/04/22 22:59 06:59 14:59 Intake Total 0 / 0 Balance 0 / 0 Weight last 48 hrs Weight 99.79 kg Weight 2.495 kg Physical Exam Narrative: General: Alert oriented x3, patient seen laying in bed appearing comfortable, wearing hearing aids breathing normally no acute distress.? Denies any chest pain at this time. HEENT: Normocephalic, atraumatic, EOMI, Cardio: Regular rate rhythm, normal S1-S2, no murmurs Respiratory: Good bilateral air entry, no wheezes no rhonchi appreciated GI: Abdomen soft, nontender, nondistended, bowel sounds + Behavior: Appropriate and cooperative Extremities: no edema, no cyanosis ? Data : 03/04/22 05:09 03/04/22 05:09 A&P Assessment and plan (1) Arthritis: Status: Acute (2) Uncontrolled hypertension: Status: Acute (3) Diabetes mellitus: Status: Acute (4) Chest pain: Status: Acute Plan #Uncontrolled hypertension #Chest pain/chest tightness #Arthritis #Diabetes mellitus, A1c 6.5 ? A1c 6.5.? Metformin 500 twice daily. ? Lipid profile and TSH reviewed. ? Echo complete. Normal EF with grade 2 diastolic dysfunction. Stress test completed today. Report pending. Has been chest pain-free since admission. Troponins negative x3. ? Continue loratadine 10 mg daily ? Hydralazine 25 3 times daily, increase hydrochlorothiazide to 25 daily, continue 10 amlodipine. -Continue to monitor blood pressure. ? and son at bedside.? All questions answered. Full code DVT prophylaxis: Lovenox Attestations Medical Necessity Statement*: Requires another night stay for continued blood pressure monitoring and adjustment of medications Blood pressure still elevated 180 systolic. Coding Level of Care Code Acute Narcotics And Vice Detective for Chg Fwd Diagnoses Arthritis M19.90 Uncontrolled hypertension I10 Diabetes mellitus E11.9 Chest pain R07.9
--- NOTE | 2022-03-04 14:53 | NMCV_ITS ---
NM roel perf SPECT r/s* [id number] Teja Elizabeth Age: 76 Gender: M : 1945 Exam Date: 03/04/2022 14:53 Ordering Phys: Michelle Vyas MD Technologist: LIBBY Malone Exam Location: [facility] Indications: CHEST PAIN STRESS TEST Please see separate stress test report in [employer] for full findings IMAGE PROTOCOL Rest/Stress 1 Exercise Day Radiopharmaceutical Dose (mCi) Administration Site Administered by Rest: Tc-99m 10.9 IV LIBBY Trejo Sestamibi Stress:Tc-99m 32.7 IV LIBBY Trejo Sestamibi Rest: 04-Mar-2022 60 Discovery 630 Stress: 04-Mar-2022 30 Discovery 630 Radiopharmaceutical was injected at 85 % maximum heart rate. Images obtained in supine and prone position. SPECT RESULTS Technical Quality: Excellent Raw Data Analysis: Normal Image Corrections: No attenuation or motion correction applied Summed Stress Score: 1 Summed Rest Score: 0 Summed Difference Score: 1 PERFUSION FINDINGS Very small sized perfusion abnormality of mild severity of mid inferolateral wall. FUNCTIONAL RESULTS (calculated via Gated SPECT) Stress Image LV EF (%): 56 Stress EDV (mL):87 TID: 0.81 Stress ESV (mL):38 FUNCTIONAL FINDINGS: The left ventricle is normal in size. Transient Ischemia Dilatation of 0.81. There is normal left ventricular systolic function. The left ventricular ejection fraction is normal with a value of 56%. There is normal left ventricular wall thickening with no regional wall motion abnormality. Normal end-diastolic and end-systolic volumes. IMPRESSIONS 1. Very small sized reversible perfusion abnormality of mid inferolateral wall. This may represent small area of ischemia in circumflex artery territory (SDS=1). 2. Overall left ventricular systolic function is normal without regional wall motion abnormalities, LVEF=56%. 3. Patient exercised for 7 minutes and 39 seconds and reached 10.2 METs. 4. Normal EKG response to treadmill exercise. Refer to separate report for details. 5. Medical management along with optimal control of hypertension is recommended. Kori Byrd MD (Electronically Signed) Final Date: 04 Mar 2022 13:22 S
[2022-03-04] MEDS: enoxaparin 40 mg/0.4 mL Syringe SUBCUT (16:14)
[2022-03-04] MEDS: acetaminophen 325 mg Tablet 650 MG PO (18:35)
[2022-03-04] MEDS: atorvastatin 40 mg Tablet PO (21:57)
[2022-03-05] VITALS (11 sets, daily range): BP systolic 142–193; BP diastolic 50–89; PULSE 58–87; RESP 17–18; TEMP 36.5–37.2; O2SAT 94–96
[2022-03-05 05:34] LABS: Anion Gap 11.7 (5-19); Blood Urea Nitrogen 17 mg/dL (8-23); Calcium 9.4 mg/dL (8.5-10.5); Carbon Dioxide 33 mmol/L (22-29); Chloride 99 mmol/L (98-107); Glucose 128 mg/dL (65-115); Magnesium 2.3 mg/dL (1.7-2.3); Osmolality Calculated 293 mOsm/kg (285-295); Potassium 3.7 mmol/L (3.5-5.1); Sodium 140 mmol/L (136-145)
[2022-03-05] MEDS: loratadine 10 mg Tablet PO (09:15)
[2022-03-05] MEDS: metformin 500 mg Tablet PO (09:15)
[2022-03-05] MEDS: hyDRALAzine 25 mg Tablet 50 MG PO ×3 (09:15→20:55)
[2022-03-05] MEDS: aspirin 81 mg EC Tablet PO (09:16)
[2022-03-05] MEDS: amlodipine 10 mg Tablet PO (09:16)
[2022-03-05] MEDS: hydroCHLOROthiazide 25 mg Tablet PO (09:16)
--- NOTE | 2022-03-05 10:56 | PC.CHAP ---
Pastoral Care Encounter/Spiritual Assessment Type of Contact [] Declined advanced developer visit [] Patient/Family/Request visit [] Outpatient visit [] Follow-up visit [] Physician referral [] Code/Alert [x] Routine visit [] Staff referral [] Actively dying [] Patient sleeping [] Family support [] [] Out of room [] Palliative care [] [] Receiving care in room [] Pre-surgical visit [] Trauma [] Long length of stay [] ICU visit [] Other: Relational/Emotional Strength [x] Patient feels connected with others/family/visitors/staff [] Distress [] Loneliness/isolation [] Abandonment Spirituality of Patient [x] Person of Pallavi [] Attends Yazidism of their Pallavi [x] Believes in Prayer [] Reads Bible or Methodist materials [] There are Spiritual issues to be addressed [employer] Consultant Interventions [x] Prayer [x] Active listening [x] Non-anxious presence [x] Spiritual/emotional support [] Crisis/trauma care [] Spiritual counseling [] Bereavement support [] Provided bereavement packet [] Provided Bible/devotional materials [] Provided toy/stuffed animal, coloring book to patient or family member [] Provided Communion [] Anointing/[place] [] Salvation [x] Completed spiritual assessment [] Other: Impact on Illness or Injury [] Angry [] Fearful [] Anxious [] Often cries [] Exhaustion [] Unable to work [] Unable to attend muslim [] Unable to walk/stand [] Unable to read [] Unable to drive [] Unable to eat/drink [] Unable to sleep [] Unable to be with family [] Patient intubated [] Other: Summary Time spent with patient 15 min
[2022-03-05] MEDS: enoxaparin 40 mg/0.4 mL Syringe SUBCUT (14:33)
[2022-03-05] MEDS: isosorbide mononitrate ER 30 mg Tablet PO (14:34)
--- NOTE | 2022-03-05 15:06 | PM.DCS ---
Discharge Providers Date of Admission: 03/03/22 12:49 Date of Discharge: March 05, 2022 Attending Provider at Admission: Michelle Vyas MD Attending Provider at Discharge: Michelle Vyas MD Primary Care Provider: Haydee Rodriguez APN Diagnoses at Discharge Discharge Diagnosis (1) Arthritis: Status: Acute (2) Uncontrolled hypertension: Status: Acute (3) Diabetes mellitus: Status: Acute (4) Chest pain: Status: Acute Reason for Visit Reason for Visit: high BP/heaviness in chest Brief History: Teja Elizabeth is a 76 year old male with past medical history of arthritis, hypertension, diabetes mellitus presented to the hospital with complaint of high blood pressure that has been going on for the last few days.? Patient and his state that since Friday he has been feeling unwell and had a cough initially.? He went to his primary care nurse practitioner and initially some blood work was obtained.? states that possibly his white blood cell count was high and they were called on the phone and prescribed doxycycline.? She also took 2 COVID tests for him at home which were negative.? 1 time he had a temperature of 99.6.? Other than the cough and his temperature he felt fine.? Also at times he states that he has been having this chest tightness that has been constant at some instances and sometimes comes and goes.? It is worsened with exertion and is present at rest.? When I saw the patient he was not having any more chest pain.? However in the ER he did report having chest pain.? He did receive sublingual nitroglycerin and 325 aspirin which made him feel better.? Patient has never had a cardiac work-up before.? EKG did not show any T wave changes or evidence of STEMI, no Q waves.? First troponin negative.? Chest x-ray did not show evidence of pneumonia or widened mediastinum.? Heart score 5.? Second and third troponin are pending.? Patient's blood pressure has been running 150s to 170s over 80s to 90s with few instances of 203/99, 179/92.? Also on February 26 his existing lisinopril 10 mg daily was increased to 20 mg daily.? Since then family has been monitoring blood pressure.? They are checking 4 times a day.? Blood pressure 1 50-1 70 range systolic over 80-90 diastolic with a few instances of 196/92, 180/94, 193/105.? Otherwise patient feels well.? Review of systems negative except noted in HPI Hospital Course Hospital Course Patient was admitted for uncontrolled hypertension and chest tightness. His chest pain was nonspecific and not truly a cardiac pain upon my assessment. Echo was done which showed grade 2 diastolic dysfunction. EF normal. Troponins negative x3. Patient was chest pain-free throughout hospital stay. Stress test was also done which showed a very small size reversible perfusion abnormality of mid inferolateral wall. This may represent small area of ischemia in circumflex artery territory. LVEF 56%. Medical management along with optimal control of hypertension is recommended. Patient and his stated that they would like to see Dr. Pederson as a iron cutter. Appointment was set up with him as an outpatient for March 19. Patient was started on aspirin, statin, Imdur. A1c 6.5. Metformin was increased from 500 daily to 500 twice daily. Patient's home blood pressure regimen was hydrochlorothiazide 12.5 daily, amlodipine 10 daily, lisinopril 10 mg daily. Patient was complaining of a cough. There was no sign of any upper respiratory infection. I stopped lisinopril on admission. ? Hydralazine 50 3 times daily, amlodipine 10 mg daily, hydrochlorothiazide 25 daily was started. Imdur 30 was also added. Blood pressure was 150-160/70-80 at discharge. Did not make any further changes. Patient was advised to take his blood pressure readings at home and keep a log sheet with follow-up with primary care physician this upcoming Friday. I did tell them that if the blood pressure drops below 110/70 to cut down the hydralazine to 25 3 times a day. His blood pressure goal should be 130/80. and patient demonstrated understanding. They both requested to be discharged today. It was decided to send him home in the evening so we could monitor blood pressure till the evening. Patient and are both counseled regarding all his medications and to come back to the hospital if he experiences any chest pain again, shortness of breath, lightheadedness. Physical Exam Narrative: General: Alert oriented x3, patient seen laying in bed appearing comfortable, wearing hearing aids breathing normally no acute distress.? Denies any chest pain at this time. HEENT: Normocephalic, atraumatic, EOMI, Cardio: Regular rate rhythm, normal S1-S2, no murmurs Respiratory: Good bilateral air entry, no wheezes no rhonchi appreciated GI: Abdomen soft, nontender, nondistended, bowel sounds + Behavior: Appropriate and cooperative Extremities: no edema, no cyanosis Discharge Data Studies Completed and Pending Completed Studies During Hospitalization Category Date Time Status Cardiac Stress Test MIBI [Sestamibi Stress Test Request Exams 03/04/22 07:39 Completed ] Routine XR chest 1V portable [id number] Stat Exams 03/03/22 11:28 Completed NM roel perf SPECT r/s* [id number] Routine Nuc Med 03/04/22 14:53 Completed CV. echo complete* [id number] Routine Ultrasound 03/03/22 14:51 Completed Radiology Impressions Chest X-Ray 03/03/22 11:28 IMPRESSION: No acute findings. Laboratory Results WBC 6.9 10^3/uL (4.0-10.0) 03/04/22 05:09 RBC 4.65 10^6/uL (4.1-5.3) 03/04/22 05:09 Hgb 14.7 g/dL (11.7-16.6) 03/04/22 05:09 Hct 42.3 % (42.0-52.0) 03/04/22 05:09 MCV 91.0 fl (80-94) 03/04/22 05:09 MCH 31.6 pg (28.0-34.0) 03/04/22 05:09 MCHC 34.8 g/dL (30.0-36.0) 03/04/22 05:09 RDW 12.5 % (12.1-15.1) 03/04/22 05:09 Plt Count 237 10^3/cmm (130-400) D 03/04/22 05:09 MPV 10.0 fL (7.4-10.4) 03/04/22 05:09 Neut % (Auto) 54.9 % 03/04/22 05:09 Lymph % (Auto) 31.5 % 03/04/22 05:09 Greene % (Auto) 7.6 % 03/04/22 05:09 Eos % (Auto) 5.0 % 03/04/22 05:09 Baso % (Auto) 0.6 % 03/04/22 05:09 Neut # (Auto) 3.77 10^3/uL (1.8-7.7) 03/04/22 05:09 Lymph # (Auto) 2.2 10^3/uL (0.8-4.8) 03/04/22 05:09 Greene # (Auto) 0.5 10^3/uL (0.2-0.9) 03/04/22 05:09 Eos # (Auto) 0.3 10^3/uL (0.0-0.8) 03/04/22 05:09 Baso # (Auto) 0.0 10^3/uL (0.0-0.1) 03/04/22 05:09 Nucleated RBC % (auto) 0 % 03/04/22 05:09 Nucleated RBCs # 0.0 /100WBC 03/04/22 05:09 Sodium 140 mmol/L (136-145) 03/05/22 04:29 Potassium 3.7 mmol/L (3.5-5.1) 03/05/22 04:29 Chloride 99 mmol/L (98-107) 03/05/22 04:29 Carbon Dioxide 33 mmol/L (22-29) H 03/05/22 04:29 Anion Gap 11.7 (5-19) 03/05/22 04:29 BUN 17 mg/dL (8-23) 03/05/22 04:29 Creatinine 0.8 mg/dL (0.7-1.2) 03/05/22 04:29 GFR Calculation Not Reportable 03/05/22 04:29 Glucose 128 mg/dL (65-115) H 03/05/22 04:29 Estimat Average Glucose 140 03/03/22 11:20 Hemoglobin A1c 6.5 % (4.0-6.0) H 03/03/22 11:20 Calculated Osmolality 293 mOsm/kg (285-295) 03/05/22 04:29 Calcium 9.4 mg/dL (8.5-10.5) 03/05/22 04:29 Magnesium 2.3 mg/dL (1.7-2.3) 03/05/22 04:29 Troponin T Baseline 14 ng/L (0-15) 03/03/22 11:20 Troponin T 120 Minute 11.81 ng/L (0-15) 03/03/22 13:30 Delta Troponin T -2.19 ABS# (0-10) L 03/03/22 13:30 Troponin T Hi Sens 6Hr 14.89 ng/L (0-15) 03/03/22 17:08 Troponin T Hi Sens 6Hr Delta 0.89 ng/L (0-12) 03/03/22 17:08 Triglycerides 175 mg/dL (0-150) H 03/03/22 11:20 Cholesterol 167 mg/dL (0-200) 03/03/22 11:20 LDL Cholesterol, Calc 101 mg/dL (50-129) 03/03/22 11:20 HDL Cholesterol 31 mg/dL (60-100) L 03/03/22 11:20 LDL/HDL Ratio 3.26 RATIO (0.00-3.22) H 03/03/22 11:20 Cholesterol/HDL Ratio 5.39 mg/dL (1.0-5.00) H 03/03/22 11:20 TSH 1.21 uIU/mL (0.27-4.20) 03/03/22 11:20 Vitals Last Vital Signs Temp 98.5 F 03/05/22 11:34 Pulse 80 03/05/22 14:00 Resp 18 03/05/22 11:34 BP 160/74 03/05/22 11:34 Pulse Ox 94 03/05/22 11:34 Discharge Plan Discharge Patient Disposition: Home Condition: Stable Prescriptions: New loratadine 10 mg Tablet 10 mg PO DAILY 30 Days Qty: 30 0RF hydrochlorothiazide 25 mg Tablet 25 mg PO DAILY 30 Days Qty: 30 0RF aspirin 81 mg Tablet,Delayed Release (Dr/Ec) 81 mg PO DAILY 30 Days Qty: 30 0RF hydralazine 25 mg Tablet 50 mg PO TID 30 Days Qty: 180 0RF isosorbide mononitrate 30 mg Tablet Extended Release 24 Hr 30 mg PO DAILY 30 Days Qty: 30 0RF atorvastatin 40 mg Tablet 40 mg PO BEDTIME 30 Days Qty: 30 0RF Continued ibuprofen 800 mg tablet 800 mg PO DAILY PRN (Reason: Pain) 0RF amlodipine 10 mg tablet 10 mg PO DAILY 0RF duloxetine 30 mg capsule,delayed release(DR/EC) 30 mg PO DAILY 0RF fluticasone propionate 50 mcg/actuation spray,suspension 2 spray INTRANASAL DAILY PRN (Reason: Nasal Congestion) 0RF Changed metformin 500 mg tablet 500 mg PO BID 30 Days Qty: 60 0RF Held terbinafine HCl 250 mg tablet 250 mg PO DAILY Qty: 30 2RF Hold Instructions: see PCP before resuming Discontinued hydrochlorothiazide 12.5 mg capsule 12.5 mg PO DAILY 0RF lisinopril 10 mg tablet 10 mg PO DAILY 0RF doxycycline hyclate 100 mg capsule 100 mg PO BID 0RF Referrals: Haydee Rodriguez APN [Primary Care Provider] - 4-7 days Sonu Pederson MD [Physician] - 03/19/22 10:30 am (Positive stress test, diastolic dysfunction. ) Discharge Diet: Cardiac and Diabetic Discharge Activity: Resume usual activity Patient Instructions: Opioid Safety Activity Restrictions/Additional Instructions: You have been started on some new medications. Please take them as directed. Please check her blood pressure at home and keep a blood pressure readings log sheet to take your primary care doctor this upcoming Friday for your appointment. If you feel lightheaded, dizzy, short of breath, or if have any more chest pain, please return to ER. If blood pressure starts running below 110/70 please cut down hydralazine dose to 25 mg 3 times a day instead of the prescribed dose of 50 mg 3 times a day. Discharge Attestations Time Spent in Discharge Care*: greater than 30 min Coding Level of Care Code Acute g FW DEMETRI note Diagnoses Arthritis M19.90 Uncontrolled hypertension I10 Diabetes mellitus E11.9 Chest pain R07.9
--- NOTE | 2022-03-05 16:42 | P.PN_ITS ---
Subjective Subjective: Seen this AM. No acute events overnight. BP meds adjusted. Vitals/I&O/Wt Last Vital Signs Temp 97.7 F 03/05/22 16:00 Pulse 83 03/05/22 16:00 Resp 17 03/05/22 16:00 BP 193/87 03/05/22 16:00 Pulse Ox 96 03/05/22 16:00 03/05/22 03/05/22 03/05/22 06:59 14:59 22:59 Intake Total 960 / 960 Balance 960 / 960 Weight last 48 hrs Weight 99.291 kg Weight 99.79 kg Physical Exam Narrative: General: Alert oriented x3, patient seen laying in bed appearing comfortable, wearing hearing aids breathing normally no acute distress.? Denies any chest pain at this time. HEENT: Normocephalic, atraumatic, EOMI, Cardio: Regular rate rhythm, normal S1-S2, no murmurs Respiratory: Good bilateral air entry, no wheezes no rhonchi appreciated GI: Abdomen soft, nontender, nondistended, bowel sounds + Behavior: Appropriate and cooperative Extremities: no edema, no cyanosis Data : 03/04/22 05:09 03/05/22 04:29 A&P Assessment and plan (1) Arthritis: Status: Acute (2) Uncontrolled hypertension: Status: Acute (3) Diabetes mellitus: Status: Acute (4) Chest pain: Status: Acute Plan #Uncontrolled hypertension #Chest pain/chest tightness #Arthritis #Diabetes mellitus, A1c 6.5 ? A1c 6.5.? Metformin 500 twice daily. ? Lipid profile and TSH reviewed. ? Echo complete.? Normal EF with grade 2 diastolic dysfunction.? Stress test completed today.? Report pending.? Has been chest pain-free since admission.? Troponins negative x3. ? Continue loratadine 10 mg daily ? Increase Hydralazine to 50 3 times daily, increase hydrochlorothiazide to 25 daily, continue 10 amlodipine. Add imdur 30 - Hydralazaine 5 mg IV q4h PRN -Continue to monitor blood pressure. ? and son at bedside.? All questions answered. Full code DVT prophylaxis: Lovenox Attestations Medical Necessity Statement*: bp still uncontrolled Coding Level of Care Code Acute Boiler Control Room Operator for [facility] Fwd Diagnoses Arthritis M19.90 Uncontrolled hypertension I10 Diabetes mellitus E11.9 Chest pain R07.9
[2022-03-05] MEDS: hyDRALAzine 20 mg/mL INJ 1 mL 5 MG IVP (17:30)
[2022-03-05] MEDS: atorvastatin 40 mg Tablet PO (20:55)
[2022-03-06] VITALS (8 sets, daily range): BP systolic 129–167; BP diastolic 53–83; PULSE 62–89; RESP 12–18; TEMP 36.6–36.8; O2SAT 88–96
[2022-03-06] MEDS: amlodipine 10 mg Tablet PO (08:04)
[2022-03-06] MEDS: aspirin 81 mg EC Tablet PO (08:04)
[2022-03-06] MEDS: metformin 500 mg Tablet PO (08:04)
[2022-03-06] MEDS: hydroCHLOROthiazide 25 mg Tablet PO (08:04)
[2022-03-06] MEDS: loratadine 10 mg Tablet PO (08:04)
[2022-03-06] MEDS: hyDRALAzine 25 mg Tablet 50 MG PO (08:04)
[2022-03-06] MEDS: isosorbide mononitrate ER 30 mg Tablet PO (08:04)
[2022-03-06] MEDS: ondansetron 2 mg/ML SDV 2 mL 4 MG IVP (10:01)
[2022-03-06] MEDS: lisinopril 20 mg Tablet 40 MG PO (11:45)
--- NOTE | 2022-03-06 12:41 | P.CONIM_ITS ---
Providers/Reason For Consult Consulting Physician/Specialty*: Santos Erwin MD/Cardiology Reason for Consult*: Chest pain/ abnormal stress test Requesting Physician: Dr Fuentes Attending Physician: Martin Fuentes MD Primary Care Provider: Haydee Rodriguez APN History of Present Illness History of Present Illness Teja Elizabeth is a 76 year old male with past medical history of hypertension and diabetes who presented to the hospital with chest discomfort episode and high blood pressure. Patient gets a substernal chest pain and pain between the shoulder blades. Has noted it more when blood pressure is elevated. He under went stress test that showed small sized reversible perfusion defect in left circumflex artery territory. He has also been having some cough. Echocardiogram shows normal LV systolic function. EKG did not reveal ischemic changes. Blood pressure is better controlled now. Review of Systems Const: Denies: fever(s) or chills Eyes: Denies: change in vision ENMT: Denies: mouth pain Card: Reports: chest pain; Denies: palpitations Resp: Denies: dyspnea or non-productive cough GI: Denies: abdominal pain, nausea, vomiting or diarrhea : Denies: dysuria Musc: Denies: extremity pain Skin/Breast: Denies: rash or new lesions Neuro: Reports: other (+light-headedness); Denies: weakness in extremities Psych: Reports: other (Normal mood) Behzad/Lymph: Denies: easy bruising Medications/Allergies Home Medications Medication Instructions Recorded Confirmed Last Taken Type amlodipine 10 mg tablet 10 mg PO DAILY 01/17/20 03/03/22 03/03/22 History duloxetine 30 mg capsule,delayed 30 mg PO DAILY 01/17/20 03/03/22 03/03/22 His tory release hydrochlorothiazide 12.5 mg capsule 12.5 mg PO DAILY 01/17/20 03/03/22 03/03/22 History ibuprofen 800 mg tablet 800 mg PO DAILY PRN 01/17/20 03/03/22 01/16/22 History lisinopril 10 mg tablet 10 mg PO DAILY 01/17/20 03/03/22 03/03/22 History terbinafine HCl 250 mg tablet 250 mg PO DAILY #30 tab 12/07/21 03/03/22 03/03/22 Rx metformin 500 mg tablet 500 mg PO DAILY 01/30/22 03/03/22 03/03/22 History doxycycline hyclate 100 mg capsule 100 mg PO BID 03/03/22 03/03/22 03/03/22 History fluticasone propionate 50 2 spray INTRANASAL DAILY PRN 03/03/22 03/03/22 Unknown History mcg/actuation nasal spray,suspension ibuprofen 800 mg tablet 800 mg PO TID PRN 03/06/22 03/06/22 03/06/22 History 0930 Allergies Allergy/AdvReac Type Severity Reaction Status Date / Time No Known Allergies Allergy Verified 01/31/22 12:47 Current Medications Generic Name Dose Route Start Last Admin Trade Name Freq PRN Reason Stop Dose Admin Acetaminophen 650 mg 03/03/22 16:35 03/04/22 18:35 Acetaminophen 325 Mg Tablet PO 650 mg Q4H PRN Administration MILD PAIN OR INCREASE TEMP Amlodipine Besylate 10 mg 03/04/22 09:00 03/06/22 08:04 Amlodipine 10 Mg Tablet PO 10 mg DAILY CARI Administration Aspirin 81 mg 03/05/22 09:00 03/06/22 08:04 Aspirin 81 Mg Ec Tablet PO 81 mg DAILY CARI Administration Atorvastatin Calcium 40 mg 03/04/22 21:00 03/05/22 20:55 Atorvastatin 40 Mg Tablet PO 40 mg BEDTIME CARI Administration Enoxaparin Sodium 40 mg 03/03/22 15:00 03/05/22 14:33 Enoxaparin 40 Mg/0.4 Ml Syringe SUBCUT 40 mg Q24H CARI Administration Hydralazine HCl 5 mg 03/05/22 16:37 03/05/22 17:30 Hydralazine 20 Mg/Ml Inj 1 Ml IVP 5 mg Q4H PRN Administration SYSTOLIC BLOOD PRESSURE Hydrochlorothiazide 25 mg 03/05/22 09:00 03/06/22 08:04 Hydrochlorothiazide 25 Mg Tablet PO 25 mg DAILY CARI Administration Lisinopril 40 mg 03/06/22 10:55 03/06/22 11:45 Lisinopril 20 Mg Tablet PO 40 mg DAILY CARI Administration Loratadine 10 mg 03/04/22 09:00 03/06/22 08:04 Loratadine 10 Mg Tablet PO 10 mg DAILY CARI Administration Nitroglycerin 0.4 mg 03/03/22 11:28 03/03/22 12:24 Nitroglycerin 0.4 Mg Sublingual Tablet SUBLINGUAL 0.4 mg Q5M PRN Administration CHEST PAIN Ondansetron HCl 4 mg 03/04/22 07:39 03/06/22 10:01 Ondansetron 2 Mg/Ml Sdv 2 Ml IVP 4 mg PRN PRN Administration NAUSEA PFSH Acute PFSH: Medical History Arthritis Avulsion fracture of ankle Blood in stool Diverticulosis Hammertoe of right foot Heloma molle Hypertension Metatarsalgia, right foot Onychomycosis Osteochondral defect of talus Surgical History History of colonoscopy History of shoulder surgery Family History Other Cancer Diabetes Social History Smoking and tobacco status: former smoker Alcohol intake: never Household members: spouse Marital status: Current occupational status: employed Current occupation: [employer] Vitals/I&O/Wt Last Vital Signs Temp 98.0 F 03/06/22 11:12 Pulse 80 03/06/22 11:12 Resp 18 03/06/22 11:12 BP 133/66 03/06/22 11:12 Pulse Ox 88 L 03/06/22 11:12 03/05/22 03/06/22 03/06/22 22:59 06:59 14:59 Intake Total 720 / 1680 480 / 2160 360 / 360 Balance 720 / 1680 480 / 2160 360 / 360 Weight last 48 hrs Weight 218 lb 14.4 oz Physical Exam Narrative: GENERAL: Patient is alert, awake and oriented x3. [] NECK: No jugular vein distension. [] HEENT: No cyanosis. No icterus. No pallor. [] HEART: Regular S1 and S2. No murmur, rub or gallop. [] LUNGS: Clear to auscultate bilaterally. [] ABDOMEN: Soft, nontender and nondistended. Positive bowel sounds. No guarding, rebound or tenderness. [] CENTRAL NERVOUS SYSTEM: Grossly nonfocal. [] EXTREMITIES: Lower extremities with 1+ edema bilaterally. Pulses palpable in the lower extremities, both dorsalis pedis and posterior tibial. [] Data : 03/07/22 04:57 03/07/22 04:57 A&P Assessment and plan (1) Diabetes mellitus: Status: Acute (2) Chest pain: Status: Acute (3) Uncontrolled hypertension: Status: Acute (4) Positive cardiac stress test: Status: Acute Plan Patient has been having on and off chest pain symptoms. Had abnormal stress test. It showed small sized perfusion abnormality that was reversible in the l eft circumflex artery territory. Given his symptoms and abnormal stress test, we discussed options for treatment. We will proceed with coronary angiogram with possible percutaneous coronary intervention. Risks and benefits of the procedure have been discussed with the patient who understands the risks and benefits and wants to proceed with it. Blood pressure is better controlled now. Uptitrate medicines as tolerated. N.p.o. past midnight. Thank you for involving us with care of this patient. We will continue to follow. Please call with questions. Coding Level of Care Code Acute Senior Health Physics Technician for [facility] Diagnoses Diabetes mellitus E11.9 Chest pain R07.9 Uncontrolled hypertension I10 Positive cardiac stress test R94.39
[2022-03-06] MEDS: enoxaparin 40 mg/0.4 mL Syringe SUBCUT (14:52)
--- NOTE | 2022-03-06 16:10 | P.PN_ITS ---
Subjective Subjective: Hospital course, labs appreciated. Seen with family at bedside. Denies any nausea, vomiting, headache. Denies any further chest heaviness. Blood pressure better but still elevated. Vitals/I&O/Wt Last Vital Signs Temp 98.0 F 03/06/22 11:12 Pulse 73 03/06/22 14:00 Resp 18 03/06/22 11:12 BP 133/66 03/06/22 11:12 Pulse Ox 88 L 03/06/22 11:12 03/06/22 03/06/22 03/06/22 06:59 14:59 22:59 Intake Total 480 / 2160 360 / 360 Balance 480 / 2160 360 / 360 Weight last 48 hrs Weight 99.291 kg Physical Exam Narrative: General: No acute distress, AO x3, pleasant HEENT: PERRLA, pupils bilaterally equal and reactive Chest: Normal vesicular breath sounds, no added sounds, equal good air entry bilaterally CVS: S1-S2 regular, no murmurs, no tachycardia, S3 gallop, no rubs Abdomen: Soft, nontender, no organomegaly, bowel sounds present Neuro: No focal deficits, no facial deformity, AO x3, power 5/5 in all limbs Data : 03/04/22 05:09 03/05/22 04:29 A&P Assessment and plan (1) Uncontrolled hypertension: Goal blood pressure less than 140/90 mmHg. At home takes amlodipine 10 mg daily, hydrochlorothiazide 12.5 mg daily, lisinop ril 20 mg daily. Currently on hydrochlorothiazide 25 mg, amlodipine 10 mg, hydralazine 50 mg 3 times daily. Continue with amlodipine, hydrochlorothiazide. Stop hydralazine and metoprolol. Switch to lisinopril 40 mg oral daily, carvedilol 6.25 mg twice daily. Will be better for patient with type 2 diabetes mellitus and possible CAD as per positive stress test. Status: Acute (2) Positive cardiac stress test: Cardiac stress test results appreciated. Cardiology consulted for possible cardiac angiogram. Family agreeable. Normal EF with grade 2 diastolic dysfunction without any regional wall motion normality. Aspirin 81 mg daily. Statin 40 mg oral daily. Lipid panel, A1c. Status: Acute (3) Chest pain: Status: Acute (4) Diabetes mellitus: HG A1c 6.5. Takes metformin 5 mg daily. Most likely can be discharged on 5 mg twice daily. Insulin sliding scale. Status: Acute (5) Arthritis: Status: Acute Plan Full code DVT prophylaxis: Lovenox Protonix for PUD prophylaxis Attestations Medical Necessity Statement*: Requires further hospitalization for management of uncontrolled hypertension, positive cardiac stress test Time Spent in Patient Care: Greater than 35 minutes Coding Level of Care Code Acute Data Warehouse Specialist for [facility] Fwd Diagnoses Arthritis M19.90 Uncontrolled hypertension I10 Diabetes mellitus E11.9 Chest pain R07.9 Positive cardiac stress test R94.39
[2022-03-06 18:18] LABS: Glucose Point of Care 132 mg/dL (70-110)
[2022-03-06 20:57] LABS: Glucose Point of Care 130 mg/dL (70-110)
[2022-03-06] MEDS: carvedilol 6.25 mg Tablet PO (21:54)
[2022-03-06] MEDS: atorvastatin 40 mg Tablet PO (21:54)
[2022-03-07] VITALS (8 sets, daily range): BP systolic 119–190; BP diastolic 66–87; PULSE 57–79; RESP 12–20; TEMP 36.6–36.8; O2SAT 90–99
[2022-03-07 05:21] LABS: Basophils # 0.1 10^3/uL (0.0-0.1); Basophils % 0.6 %; Eosinophils # 0.4 10^3/uL (0.0-0.8); Hematocrit 39.5 % (42.0-52.0); Hemoglobin 13.4 g/dL (11.7-16.6); Lymphocytes # 2.3 10^3/uL (0.8-4.8); Lymphocytes % 26.7 %; Mean Corpuscular HGB Conc 33.9 g/dL (30.0-36.0); Mean Corpuscular Hemoglobin 31.5 pg (28.0-34.0); Mean Corpuscular Volume 92.9 fl (80-94); Mean Platelet Volume 10.2 fL (7.4-10.4); Monocytes # 0.8 10^3/uL (0.2-0.9); Monocytes % 9.4 %; Neutrophils # 4.95 10^3/uL (1.8-7.7); Neutrophils % 57.8 %; Nucleated Red Blood Cells % 0 %; Platelet Count 254 10^3/cmm (130-400); Red Blood Count 4.25 10^6/uL (4.1-5.3); Red Cell Distribution Width 12.3 % (12.1-15.1); White Blood Count 8.6 10^3/uL (4.0-10.0)
[2022-03-07 05:47] LABS: Alanine Aminotransferase 35 U/L (0-41); Alkaline Phosphatase 50 IU/L (40-130); Anion Gap 14.6 (5-19); Aspartate Amino Transferase 20 U/L (0-40); Blood Urea Nitrogen 19 mg/dL (8-23); Calcium 8.6 mg/dL (8.5-10.5); Carbon Dioxide 26 mmol/L (22-29); Chloride 99 mmol/L (98-107); Globulin 2.7 g/dL (1.3-4.6); Glucose 124 mg/dL (65-115); Osmolality Calculated 286 mOsm/kg (285-295); Potassium 3.6 mmol/L (3.5-5.1); Sodium 136 mmol/L (136-145); Total Bilirubin 0.4 mg/dL (0.15-1.2); Total Protein 6.7 g/dL (6.6-8.7)
[2022-03-07 06:46] LABS: Glucose Point of Care 121 mg/dL (70-110)
--- NOTE | 2022-03-07 08:06 | XACV_ITS ---
Exam Room: 2 Gender: Male : 1945 Any Known Allergies: No known allergies Exam Priority: Routine Procedure(s): Procedure Description: Diagnostic procedure Procedure Description: Left Heart Catheterization Procedure Description: Coronary Angiography Diagnostic Cath Status: Urgent Diagnostic Findings * Left Anterior Descending has distal moderate disease. * INDICATION: 76 year old male with past medical history of hypertension and diabetes who presented to the hospital with chest discomfort episode and high blood pressure. Patient gets a substernal chest pain and pain between the shoulder blades. Has noted it more when blood pressure is elevated. He underwent stress test that showed reversible perfusion defect in left circumflex artery territory.. * Left Main has no disease. * Circumflex has no disease. * Proximal Right Coronary Artery: luminal irregularities 20% stenosis, KANIKA: 3 flow. * Coronary angiography shows right dominance. Conclusions 1. Non obstructive coronary artery disease. Recommendations * Aggressive risk factor modification. * Outpatient cardiology follow up in 4 weeks. Interventional RX Recommendation: medical therapy and/or counseling Diagnostic RX Recommendation: medical therapy and/or counseling Pressures Phase:Rest AO : 110 / 54 ( 70 ) @ 12:33:00 PM 130 / 60 ( 79 ) @ 12:39:00 PM 128 / 51 ( 79 ) @ 12:39:00 PM LV : 148 / -5 / 18 @ 12:38:00 PM 146 / -5 / 19 @ 12:39:00 PM Valves Phase:DefaultPhase AV : 12.0 @ 11:43:33 AM AV Mean Gradient: 14.0 @ 11:43:33 AM Clinical Evaluation EBL: 5mL-10mL Procedural Details Procedure Consent Obtained. Pre-Procedure Time Out. Identified patient by full name and date of as verbalized by the patient/guarantor. Does the consent match the physician's order: Yes. Accurate & Complete Informed Consent: Yes. Inpatient/Outpatient History & Physical on Chart: Yes. If H&P is completed, is and addenduem needed: No; If yes, is the addendum complete: N/A. Visualize and Verify Site with Patient/Guarantor: N/A. Relevant Radiology Images available: Yes. The risks, benefits, and alternatives of sedation and/or procedure were discussed by physician. The patient agrees to continue. Procedure started. [facility] Clinical Fraility Score: 3: Managing Well. Life Sciences Manager Indications: New Onset Angina. Chest Pain Symptom Assessment: Typical Angina Symptoms. Cardiovascular Instability: No. Correct patient, site and procedure confirmed by cath team. PERRLA. Strong, equal hand disability program navigator bilaterally. Lungs clear x 5 lobes. A 20 gauge IV was started in the left anticubital using aseptic technique. Pre Procedural Pulses: bilateral dorsalis pedis was 3+. Pre Procedural Pulses: bilateral posterior tibial was 3+. Pre Procedural Pulses: bilateral radial was 3+. Oxygen started at 2liters/min via nasal canula. right groin was prepped with chloroprep then draped in the usual sterile fashion. right radial was prepped with chloroprep then draped in the usual sterile fashion. Baseline sample Acquired. HR: 62 BPM. Physician notified. Patient's family in the radiology waiting room. Dr. Erwin will update at the completion of the procedure. Physician arrived. Physician scrubbed in. Immediate Pre-Procedure Time Out. Correct Patient: Yes; Correct Procedure: Yes; Correct Site: Yes; Correct Patient Position: Yes; Correct Supplies: Yes; Dried Flammable Prep: Yes; Blood Products Available: N/A;. Lidocaine 1% infiltrated to the right radial. Arterial access obtained. A 6 nepalese TIG catheter in over wire. Multiple views taken of left coronary artery. Catheter redirected to the RCA. Multiple views taken of right coronary artery. Catheter redirected to the LV. EDP Sample taken: LV 148/-6,18; HR: 66 BPM; SpO2: 91%. Pullback taken: LV 146/-6,19; AO 130/60(79); Mean: 14mmHg, Peak to Peak: 12mmHg, SEP: 17sec/min; HR: 63 BPM; SpO2: 96%. Catheter out. Dr. Erwin scrubbed out. TR band placed. Hemostasis obtained. A TR Band was successful obtaining hemostatsis at the Right Radial artery insertion site. Post Procedure: Pulses reassessed and unchanged. PERRLA. Strong, equal hand disability program navigator bilaterally. No VTE prophylaxis required. Medication's Wasted: Lidocaine 1% = 7 mL. Medication's Wasted: Nitro = 49.8 mg. Medication's Wasted: Heparin = 1000 units. Total IV fluids: 50 mL. Post-op diagnosis: normal coronaries. Complications: none. Estimated blood loss: 5mL-10mL. Responsiveness - Normal response to verbal stimuli; alert and oriented, PERRLA. Airway - Unaffected, no intervention required; spontaneous ventilation. Circulation: W/N/L, pulses unchanged. Nausea/Vomiting: No. Procedure completed. Patient transferred by wheelchair to ICU. Vital chart was stopped. Access Site Site: Right Radial artery Sheath Size: 6 Fr Hemostasis Method: TR Band Hemostasis Success: Successful Procedure Medications Start: 11:26 AM Stop: 11:26 AM Medication: Versed Amount: 1 mg Route: I.V. Start: 11:26 AM Stop: 11:26 AM Medication: Fentanyl Amount: 50 mcg Route: I.V. Start: 11:32 AM Stop: 11:32 AM Medication: Nitrogylcerin Amount: 200 mcg Route: I.A. Start: 11:32 AM Stop: 11:32 AM Medication: Heparin Amount: 5000 units Route: I.V. Start: 11:33 AM Stop: 11:33 AM Medication: Versed Amount: 1 mg Route: I.V. Start: 11:33 AM Stop: 11:33 AM Medication: Fentanyl Amount: 50 mcg Route: I.V. I, the attending physician, have reviewed and verified all procedure medications. Yes, all medications given per verbal order History/Risk Factors Hypertension: Yes Dyslipidemia: No Peripheral Arterial Disease (PAD): No Myocardial Infarction (DC): No Obesity: Yes Renal Disease: No Tobacco Use: Former Prior Interventions PCI: No CABG: No Valve Surgery: No Report Signatures Finalized by Santos Erwin MD on 03/18/2022 11:20 PM
[2022-03-07] MEDS: aspirin 81 mg EC Tablet PO (08:48)
[2022-03-07] MEDS: lisinopril 20 mg Tablet 40 MG PO (08:48)
[2022-03-07] MEDS: hydroCHLOROthiazide 25 mg Tablet PO (08:48)
[2022-03-07] MEDS: pantoprazole DR 40 mg Tablet PO (08:49)
[2022-03-07] MEDS: amlodipine 10 mg Tablet PO (08:49)
[2022-03-07] MEDS: carvedilol 6.25 mg Tablet PO (08:49)
[2022-03-07] MEDS: loratadine 10 mg Tablet PO (08:49)
[2022-03-07] MEDS: acetaminophen 325 mg Tablet 650 MG PO (08:51)
--- NOTE | 2022-03-07 11:23 | W.PM.OPSUD ---
Surgery/Procedure H&P Update DATE OF PROCEDURE: March 07, 2022 DATE H&P PERFORMED: 03/06/22 H&P UPDATE INFORMATION: I have reviewed H&P completed within last 30 days, I have examined patient prior to procedure and No changes to prior documentation PREOP DIAGNOSIS: Chest pain/ abnormal stress test PRIMARY INDICATION FOR PROCEDURE: Chest pain/ abnormal stress test PLANNED PROCEDURE: Left heart cath with possible percutaneous coronary intervention PATIENT REASSESSED PRIOR TO SEDATION, WITH NO CHANGE NOTED: Yes PHYSICAL EXAM: alert, oriented x 3, clear to auscultation bilaterally and regular rate & rhythm AIRWAY EVAL/ANESTHESIA PLAN: ASA III, Monitored Anesthesia, Local Anesthesia, Risks, benefits & alternatives of sedation and/or procedure discussed and Patient agrees to continue as planned
--- NOTE | 2022-03-07 11:44 | P.PN_ITS ---
Subjective Subjective: Patient is doing well. Had coronary angiogram today that showed non obstructive CAD Vitals/I&O/Wt Last Vital Signs Temp 98.2 F 03/07/22 07:42 Pulse 66 03/07/22 07:42 Resp 17 03/07/22 07:42 BP 152/76 03/07/22 07:42 Pulse Ox 91 03/07/22 07:42 03/06/22 03/07/22 03/07/22 22:59 06:59 14:59 Intake Total 200 / 560 Output Total 200 / 200 Balance 200 / 560 -200 / 360 Weight last 48 hrs Weight 220 lb 11.2 oz Physical Exam Narrative: GENERAL: Patient is alert, awake and oriented x3. [] NECK: No jugular vein distension. [] HEENT: No cyanosis. No icterus. No pallor. [] HEART: Regular S1 and S2. No murmur, rub or gallop. [] LUNGS: Clear to auscultate bilaterally. [] ABDOMEN: Soft, nontender and nondistended. Positive bowel sounds. No guarding, rebound or tenderness. [] CENTRAL NERVOUS SYSTEM: Grossly nonfocal. [] EXTREMITIES: Lower extremities with 1+ edema bilaterally. Pulses palpable in the lower extremities, both dorsalis pedis and posterior tibial. [] Data : 03/07/22 04:57 03/07/22 04:57 A&P Assessment and plan (1) Diabetes mellitus: Status: Acute (2) Chest pain: Status: Resolved (3) Uncontrolled hypertension: Status: Resolved (4) Positive cardiac stress test: Status: Acute Plan Patient has been having on and off chest pain symptoms. Had abnormal stress test. It showed small sized perfusion abnormality that was reversible in the left circumflex artery territory. Coronary angiogram was performed that did not show significant CAD. Aggressive risk factor control including blood pressure control Thank you for involving us with care of this patient. Please call with questions. Attestations Medical Necessity Statement*: Care expected to cross 2 midnights. Coding Level of Care Code Acute Scientific Laboratory Supervisor for Abdiel Fwthee Diagnoses Diabetes mellitus E11.9 Chest pain R07.9 Uncontrolled hypertension I10 Positive cardiac stress test R94.39
--- NOTE | 2022-03-07 12:21 | P.DS_ITS ---
Discharge Providers Date of Admission: 03/05/22 18:14 Date of Discharge: March 07, 2022 Attending Provider at Admission: Michelle Vyas MD Attending Provider at Discharge: Martin Fuentes MD Primary Care Provider: Haydee Rodriguez APN Diagnoses at Discharge Discharge Diagnosis (1) Diabetes mellitus: Status: Acute (2) Chest pain: Status: Acute (3) Uncontrolled hypertension: Status: Acute (4) Positive cardiac stress test: Status: Acute Reason for Visit Reason for Visit: high BP/heaviness in chest Hospital Course Hospital Course Teja Elizabeth is a 76 year old male with past medical history of hypertension and diabetes who presented to the hospital with chest discomfort episode and high blood pressure.? Patient gets a substernal chest pain and pain between the shoulder blades.? Has noted it more when blood pressure is elevated.? Patient was admitted to the hospital further evaluation and management of hypertensive emergency. His antihypertensives were adjusted to which he responded well. Because of persistent of chest heaviness he underwent echocardiogram which showed a normal EF without regional wall motion normality and grade 2 diastolic dysfunction. He underwent Lexiscan stress test which was concerning for a possibility of small reversible ischemia in LCx telemetry so cardiology was consulted and he underwent cardiac angiogram on 03/07 which was consistent with nonobstructive CAD and possible vasospastic angina(complete Supervisor Home Energy Consultant report is not available currently). He has been discharged hemodynamically stable condition on adjusted antihypertensives. Going forward he is to take amlodipine 10 mg daily, carvedilol 6.25 mg twice daily, hydrochlorothiazide 25 mg daily, Imdur 30 mg twice daily, lisinopril 40 mg oral daily. He is advised to monitor his blood pressure twice daily and maintain a blood pressure diary and follow-up with his primary care provider within next 2 weeks for further adjustment of an tihypertensives as needed. Patient and patient's family has been informed in detail regarding danger signs. He is to come back to the ER for systolic blood pressures are more than 180/110 mmHg or less than 90 mmHg. Physical Exam Narrative: General: No acute distress, AO x3, pleasant HEENT: PERRLA, pupils bilaterally equal and reactive Chest: Normal vesicular breath sounds, no added sounds, equal good air entry bilaterally CVS: S1-S2 regular, no murmurs, no tachycardia, S3 gallop, no rubs Abdomen: Soft, nontender, no organomegaly, bowel sounds present Neuro: No focal deficits, no facial deformity, AO x3, power 5/5 in all limbs Discharge Data Studies Completed and Pending Completed Studies During Hospitalization Category Date Time Status Cardiac Stress Test MIBI [Sestamibi Stress Test Request Exams 03/04/22 07:39 Completed ] Routine XR chest 1V portable [id number] Stat Exams 03/03/22 11:28 Completed NM roel perf SPECT r/s* [id number] Routine Nuc Med 03/04/22 14:53 Completed CV. echo complete* [id number] Routine Ultrasound 03/03/22 14:51 Completed Pending at discharge Category Date Time Status PULP GRINDER AND BLENDER request for service Routine Exams 03/07/22 08:06 Taken Radiology Impressions Chest X-Ray 03/03/22 11:28 IMPRESSION: No acute findings. Echocardiogram: CONCLUSIONS ?1. Normal left ventricular size, systolic function and wall?thickness, with no regional wall motion abnormalities. Left?ventricular ejection fraction is estimated at 65%. Grade II?diastolic dysfunction, moderately elevated filling pressures. ?2. Normal right ventricular size and systolic function. ?3. Normal pulmonary artery pressure. ?4. No prior similar studies to compare. ?Kori Byrd MD ?(Electronically Signed) ?Final Date:? ? ? 03 Mar 2022 18:35 S Lexiscan stress test: PERFUSION FINDINGS ?Very small sized perfusion abnormality of mild severity of mid inferolateral?wall. ?FUNCTIONAL RESULTS ? ? (calculated via Gated SPECT) ? Stress Image LV EF (%):? ? 56 ? Stress EDV (mL):87 ? TID:? 0.81 ? Stress ESV (mL):38 ?FUNCTIONAL FINDINGS: ?The left ventricle is normal in size. Transient Ischemia Dilatation of 0.81. ?There is normal left ventricular systolic function. ?The left ventricular ejection fraction is normal with a value of 56%. ?There is normal left ventricular wall thickening with no regional wall motion?abnormality. ?Normal end-diastolic and end-systolic volumes. ?IMPRESSIONS ?1.? Very small sized reversible perfusion abnormality of mid inferolateral?wall.? This may represent small area of ischemia in circumflex artery territory?(SDS=1). ?2. Overall left ventricular systolic function is normal without regional wall?motion abnormalities, LVEF=56%. ?3.? Patient exercised for 7 minutes and 39 seconds and reached 10.2 METs. ?4.? Normal EKG response to treadmill exercise.? Refer to separate report for?details. ?5.? Medical management along with optimal control of hypertension is?recommended. ?Kori Byrd MD ?(Electronically Signed) ?Final Date:? ? ? 04 Mar 2022 13:22 S Laboratory Results WBC 8.6 10^3/uL (4.0-10.0) 03/07/22 04:57 RBC 4.25 10^6/uL (4.1-5.3) 03/07/22 04:57 Hgb 13.4 g/dL (11.7-16.6) 03/07/22 04:57 Hct 39.5 % (42.0-52.0) L 03/07/22 04:57 MCV 92.9 fl (80-94) 03/07/22 04:57 MCH 31.5 pg (28.0-34.0) 03/07/22 04:57 MCHC 33.9 g/dL (30.0-36.0) 03/07/22 04:57 RDW 12.3 % (12.1-15.1) 03/07/22 04:57 Plt Count 254 10^3/cmm (130-400) 03/07/22 04:57 MPV 10.2 fL (7.4-10.4) 03/07/22 04:57 Neut % (Auto) 57.8 % 03/07/22 04:57 Lymph % (Auto) 26.7 % 03/07/22 04:57 [place] % (Auto) 9.4 % 03/07/22 04:57 Eos % (Auto) 5.0 % 03/07/22 04:57 Baso % (Auto) 0.6 % 03/07/22 04:57 Neut # (Auto) 4.95 10^3/uL (1.8-7.7) 03/07/22 04:57 Lymph # (Auto) 2.3 10^3/uL (0.8-4.8) 03/07/22 04:57 [place] # (Auto) 0.8 10^3/uL (0.2-0.9) 03/07/22 04:57 Eos # (Auto) 0.4 10^3/uL (0.0-0.8) 03/07/22 04:57 Baso # (Auto) 0.1 10^3/uL (0.0-0.1) 03/07/22 04:57 Nucleated RBC % (auto) 0 % 03/07/22 04:57 Nucleated RBCs # 0.0 /100WBC 03/07/22 04:57 Sodium 136 mmol/L (136-145) 03/07/22 04:57 Potassium 3.6 mmol/L (3.5-5.1) 03/07/22 04:57 Chloride 99 mmol/L (98-107) 03/07/22 04:57 Carbon Dioxide 26 mmol/L (22-29) 03/07/22 04:57 Anion Gap 14.6 (5-19) 03/07/22 04:57 BUN 19 mg/dL (8-23) 03/07/22 04:57 Creatinine 0.8 mg/dL (0.7-1.2) 03/07/22 04:57 GFR Calculation Not Reportable 03/07/22 04:57 Glucose 124 mg/dL (65-115) H 03/07/22 04:57 POC Glucose 121 mg/dL (70-110) H 03/07/22 06:35 Estimat Average Glucose 140 03/03/22 11:20 Hemoglobin A1c 6.5 % (4.0-6.0) H 03/03/22 11:20 Calculated Osmolality 286 mOsm/kg (285-295) 03/07/22 04:57 Calcium 8.6 mg/dL (8.5-10.5) 03/07/22 04:57 Magnesium 2.3 mg/dL (1.7-2.3) 03/05/22 04:29 Total Bilirubin 0.4 mg/dL (0.15-1.2) 03/07/22 04:57 AST 20 U/L (0-40) 03/07/22 04:57 ALT 35 U/L (0-41) 03/07/22 04:57 Alkaline Phosphatase 50 IU/L (40-130) 03/07/22 04:57 Troponin T Baseline 14 ng/L (0-15) 03/03/22 11:20 Troponin T 120 Minute 11.81 ng/L (0-15) 03/03/22 13:30 Delta Troponin T -2.19 ABS# (0-10) L 03/03/22 13:30 Troponin T Hi Sens 6Hr 14.89 ng/L (0-15) 03/03/22 17:08 Troponin T Hi Sens 6Hr Delta 0.89 ng/L (0-12) 03/03/22 17:08 Total Protein 6.7 g/dL (6.6-8.7) 03/07/22 04:57 Albumin 4.0 g/dL (3.5-5.2) 03/07/22 04:57 Globulin 2.7 g/dL (1.3-4.6) 03/07/22 04:57 Triglycerides 175 mg/dL (0-150) H 03/03/22 11:20 Cholesterol 167 mg/dL (0-200) 03/03/22 11:20 LDL Cholesterol, Calc 101 mg/dL (50-129) 03/03/22 11:20 HDL Cholesterol 31 mg/dL (60-100) L 03/03/22 11:20 LDL/HDL Ratio 3.26 RATIO (0.00-3.22) H 03/03/22 11:20 Cholesterol/HDL Ratio 5.39 mg/dL (1.0-5.00) H 03/03/22 11:20 TSH 1.21 uIU/mL (0.27-4.20) 03/03/22 11:20 Vitals Last Vital Signs Temp 98.2 F 03/07/22 07:42 Pulse 66 03/07/22 07:42 Resp 17 03/07/22 07:42 BP 152/76 03/07/22 07:42 Pulse Ox 91 03/07/22 07:42 Discharge Plan Discharge Patient Disposition: Home Condition: Stable Prescriptions: New isosorbide mononitrate 30 mg Tablet Extended Release 24 Hr 30 mg PO BID 30 Days Qty: 60 0RF atorvastatin 40 mg Tablet 40 mg PO BEDTIME 30 Days Qty: 30 0RF aspirin 81 mg Tablet,Delayed Release (Dr/Ec) 81 mg PO DAILY 30 Days Qty: 30 0RF hydrochlorothiazide 25 mg Tablet 25 mg PO DAILY 30 Days Qty: 30 0RF loratadine 10 mg Tablet 10 mg PO DAILY 30 Days Qty: 30 0RF carvedilol 6.25 mg Tablet 6.25 mg PO BID@0900,2100 30 Days Qty: 60 0RF Continued ibuprofen 800 mg tablet 800 mg PO DAILY PRN (Reason: Pain) 0RF amlodipine 10 mg tablet 10 mg PO DAILY 0RF duloxetine 30 mg capsule,delayed release(DR/EC) 30 mg PO DAILY 0RF fluticasone propionate 50 mcg/actuation spray,suspension 2 spray INTRANASAL DAILY PRN (Reason: Nasal Congestion) 0RF Changed metformin 500 mg tablet 500 mg PO BID 30 Days Qty: 60 0RF Held terbinafine HCl 250 mg tablet 250 mg PO DAILY Qty: 30 2RF Hold Instructions: see PCP before resuming Discontinued hydrochlorothiazide 12.5 mg capsule 12.5 mg PO DAILY 0RF lisinopril 10 mg tablet 10 mg PO DAILY 0RF doxycycline hyclate 100 mg capsule 100 mg PO BID 0RF ibuprofen 800 mg Tablet 800 mg PO TID PRN (Reason: Pain) 0RF Discharge Orders: Discharge Order (Routine); Ordered 03/07/22 Ordered By: Martin Fuentes Referrals: Haydee Rodriguez APN [Primary Care Provider] - 4-7 days Sonu Pederson MD [Physician] - 03/19/22 10:30 am (Positive stress test, diastolic dysfunction. ) Rajwinder Scruggs MD [Staff Physician] - 2 weeks Discharge Diet: Cardiac and Diabetic Discharge Activity: Resume usual activity Patient Instructions: Opioid Safety Activity Restrictions/Additional Instructions: Multiple medication changes have been done. Going forward take amlodipine 10 mg daily, Coreg/carvedilol 6.25 mg twice daily, lisinopril dose has been increased to 40 mg oral daily, hydrochlorothiazide dose has been increased to 25 mg oral daily, Imdur 30 mg twice daily. Please check your blood pressure twice daily and maintain a blood pressure diary at home and follow-up with your primary care provider within next 2 weeks for further adjustment of antihypertensives. Please come to the ER if your systolic blood pressures are more than 180/110 mmHg or if blood pressures are less than 90 systolic. Going forward please continue take baby aspirin and atorvastatin daily. You should check your A1c and lipid panel again in 6 months. Please follow-up with novelty dipper and your family care provider within next 2 weeks. Discharge Attestations Time Spent in Discharge Care*: greater than 30 min Specific Discharge Activities: educating patient, educating and/or supporting family/caregiver, discussing with pcp/other providers, discussing with pillowcase folder/social workers/dc planners, documenting/other paperwork and evaluating patient/reviewing data Status at Discharge: Cognitive status at discharge: cognitively intact , Behavioral status at discharge: cooperative , Functional status at discharge: independent ambulation , Overall status at discharge: patient is back to baseline Quality Metrics Clinical Quality Measures [ No reported AMI, CVA or VTE this stay] Coding Level of Care Code Acute Chg FW DC note Diagnoses Diabetes mellitus E11.9 Chest pain R07.9 Uncontrolled hypertension I10 Positive cardiac stress test R94.39
[2022-03-07] MEDS: ondansetron 2 mg/ML SDV 2 mL 4 MG IVP (12:32)
[2022-03-07] MEDS: ALPRAZolam 0.5 mg Tablet PO (13:02)
--- NOTE | 2022-03-07 15:34 | PC.NURSE ---
Discharge instructions given to patient and . IV removed. TR off. VSS. Patient and belongings wheeled to private vehicle by this nurse, accompanied by .
== END 2022-03-07 15:43 | disposition home or self-care (01) | DRG 287 ==
LOC: ER 12:48 → MEDSURG 13:19 → ICU 03-07 12:00
PROVIDERS: Internal Medicine; Admitting Provider Internal Medicine; Emergency Provider Emergency Medicine; PCP Nurse Practitioner; Visit Provider Student in an Organized Health Care Education/Training Program
PROC: 4A023N7 Measurement of Cardiac Sampling and Pressure, Left Heart, Percutaneous Approach (ICD-10-PCS; principal; 2022-03-07 11:00)
DX: I16.1 Hypertensive emergency (principal); I10 Essential (primary) hypertension; Z87.891 Personal history of nicotine dependence; M19.90 Unspecified osteoarthritis, unspecified site; E11.9 Type 2 diabetes mellitus without complications; R94.39 Abnormal result of other cardiovascular function study; I25.111 Atherosclerotic heart disease of native coronary artery with angina pectoris with documented spasm
CPT/HCPCS: 36415; 36416; 71045; 78452; 80048; 80053; 80061; 82962; 83036; 83735; 84443; 84484; 85025; 93005; 93017; 93306; 93452; 93458; 96360; 96372; 99152; 99153; 99285; A9500; C1769; C1887; C1894; G0378; J0360; J1644; J1650; J2250; J2405; J3010; J3490; J7030; Q9967

== ENCOUNTER → 2022-03-14 13:57 | Outpatient (BNVA) | payer MEDICARE, OTHER, SELFPAY | PROVIDERS: Visit Provider Nurse Practitioner Family | DX: I10 Essential (primary) hypertension (principal); Z87.891 Personal history of nicotine dependence | CPT/HCPCS: 80048; 99213; 99214 ==

== ENCOUNTER → 2022-04-19 09:21 | Outpatient (BNVA) | payer MEDICARE, OTHER, SELFPAY | PROVIDERS: PCP Nurse Practitioner Family; Visit Provider Internal Medicine | DX: Z09 Encounter for follow-up examination after completed treatment for conditions other than malignant neoplasm (principal); E11.9 Type 2 diabetes mellitus without complications; I11.0 Hypertensive heart disease with heart failure; I50.30 Unspecified diastolic (congestive) heart failure; Z79.84 Long term (current) use of oral hypoglycemic drugs | CPT/HCPCS: 99214 ==

== ENCOUNTER → 2022-04-25 08:10 | Outpatient (BNVA) | payer MEDICARE, OTHER, SELFPAY | PROVIDERS: PCP Nurse Practitioner Family; Visit Provider Podiatrist Foot & Ankle Surgery | DX: L84 Corns and callosities (principal); M79.671 Pain in right foot; B35.1 Tinea unguium; L60.3 Nail dystrophy | CPT/HCPCS: 99213 ==

== ENCOUNTER → 2022-07-24 07:44 | Outpatient (BNVA) | payer MEDICARE, OTHER, SELFPAY | PROVIDERS: PCP Nurse Practitioner Family; Visit Provider Podiatrist Foot & Ankle Surgery | DX: L84 Corns and callosities (principal); L60.3 Nail dystrophy | CPT/HCPCS: 99213 ==

== ENCOUNTER 2022-09-18 08:02 | Outpatient (CLI) | payer MEDICARE, OTHER, SELFPAY ==
--- NOTE | 2022-09-18 08:45 | USCV_ITS ---
Teja Elizabeth Age: 77 Gender: M : 1945 Exam Date: 09/18/2022 08:13 Ordering Phys: Santos Erwin M.D ([email or web address]) Technologist: KALYN Exam Location: [facility] [place] Indication: CARDIAC MURMUR BP: 148 / 56 HR: 57 Rhythm: Sinus Technical Quality: Adequate MEASUREMENTS (Male / Female) Normal Values 2D ECHO LVOT Diameter 2.0 cm LV Ejection Fraction MOD 2C 74.6 % LV Ejection Fraction 2C AL 73.7 % LA Diameter 3.5 cm LA Width 4.1 cm LA Height 5.0 cm RA Width 3.4 cm RA Height 4.9 cm Aorta at Sinotubular Diameter 2.6 cm IVC Diameter 1.3 cm M-MODE Aortic Annulus Diameter 2.5 cm LA Ao Ratio MM 1.3 MV E Point Septal Separation 0.4 cm DOPPLER AV Peak Velocity 195.3 cm/s LVOT Peak Velocity 172.0 cm/s AV Area Cont Eq vti 2.8 cm squared AV Area Cont Eq pk 2.9 cm squared MV Peak Velocity 144.0 cm/s MV Area PHT 2.4 cm squared Mitral E to A Ratio 0.6 MV E' Velocity 43.0 cm/s Mitral E to MV E' Ratio 11.6 Mitral E to LV E' Lateral Ratio 10.0 Mitral E to LV E' Septal Ratio 14.2 TR Peak Velocity 255.0 cm/s TR Peak Gradient 26.0 mmHg TR Mean Velocity 225.8 cm/s TR Mean Gradient 20.7 mmHg TR Velocity Time Integral 89.4 cm TV Peak E Velocity 50.0 cm/s Right Atrial Pressure 3.0 mmHg Pulmonary Artery Systolic Pressu 29.0 mmHg PV Peak Velocity 98.0 cm/s RV Acceleration Time 0.1 s RV Ejection Time 0.3 s RV AcT/ET 0.4 FINDINGS Left Ventricle Left ventricle is normal in size. LV systolic function is normal with EF of 55-60%. No regional wall mtion abnormalities are seen. Grade 1 diastolic dysfunction Right Ventricle Normal in size and function Right Atrium Normal in size Left Atrium Normal in size Mitral Valve Mild mitral annular calcification. Mild mitral regurgitation. Aortic Valve Aortic valve is thickened. No significant stenosis or regurgitation. Tricuspid Valve Trace tricuspid regurgitation. Insufficient TR jet to calculate RVSP Pulmonic Valve Not well visualized Pericardium Normal Aorta Normal in size IVC Appears to be normal CONCLUSIONS LV systolic function is normal with EF of 55-60% Grade 1 diastolic dysfunction Mild mitral annular calcification. Mild mitral regurgitation Aortic valve is thickened. Trace tricuspid regurgitation. Compared to prior echocardiogram from 03/03/2022, no significant changes are seen Santos Erwin MD (Electronically Signed) Final Date: 01 October 2022 10:19 S
== END 2022-09-18 08:03 | disposition home or self-care (01) ==
LOC: RAD 08:04
PROVIDERS: PCP Nurse Practitioner Family; Visit Provider Internal Medicine
DX: R01.1 Cardiac murmur, unspecified (principal); I08.3 Combined rheumatic disorders of mitral, aortic and tricuspid valves
CPT/HCPCS: 93306

== ENCOUNTER → 2023-01-21 14:44 | Outpatient (BNVA) | payer MEDICARE, OTHER, SELFPAY | PROVIDERS: PCP Nurse Practitioner Family; Visit Provider Internal Medicine | DX: I11.0 Hypertensive heart disease with heart failure (principal); I50.30 Unspecified diastolic (congestive) heart failure; E11.9 Type 2 diabetes mellitus without complications; Z79.84 Long term (current) use of oral hypoglycemic drugs; Z87.891 Personal history of nicotine dependence | CPT/HCPCS: 99213 ==

== ENCOUNTER 2023-12-19 10:44 | Outpatient (CLI) | payer MEDICARE, OTHER, SELFPAY ==
--- NOTE | 2023-12-19 11:06 | XR_ITS ---
WS: [id number] Exam: XR lumbar spine min 4V [id number] Date/Time of Exam: 12/19/2023 11:13 AM Reason For Exam: CHRONIC LUMBAR RADICULOPATHY No fracture or dislocation. Degenerative vacuum disc at L5-S1. Facet arthropathy at L4-5 and L5-S1. S light spondylosis. IMPRESSION1. Moderate degenerative changes of the lower lumbar spine as detailed above. No fracture o r malalignment.
--- NOTE | 2023-12-19 11:06 | XR_ITS ---
WS: [id number] Exam: XR hip BI 3-4V wo/w pel [id number] Date/Time of Exam: 12/19/2023 11:13 AM Reason For Exam: PAIN IN R HIP Mild degenerative change of both hips the pattern is bilaterally symmetrical. No fracture or dislocat ion. Vascular calcification in the upper medial thighs. The pelvis is intact. IMPRESSION: 1. Mild bilateral hip joint DJD. The pattern is bilaterally symmetrical. No fracture.
== END 2023-12-19 10:45 | disposition home or self-care (01) ==
LOC: RAD 10:51
PROVIDERS: PCP Nurse Practitioner Family; Visit Provider Nurse Practitioner Family
DX: M51.17 Intervertebral disc disorders with radiculopathy, lumbosacral region (principal); M16.0 Bilateral primary osteoarthritis of hip
CPT/HCPCS: 72110; 73522

== ENCOUNTER 2024-03-31 06:51 | Outpatient (CLI) | payer MEDICARE, OTHER, SELFPAY ==
--- NOTE | 2024-03-31 06:59 | MR_ITS ---
WS: [id number] MRI LUMBAR SPINE NONCONTRAST HISTORY: low back pain COMPARISON: None available. TECHNIQUE: Sagittal and axial multisequence imaging is submitted. Moderate degenerative disc disease in the cervical spine with narrowing the central canal. T10 ronnie ioma. Normal lumbar alignment with no compression fractures or marrow edema. Advanced degenerative disc disease at L5-S1. No acute fracture. Conus terminates normally at L1-2 disc level. 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 Mild stenosis centra lly. Mild to moderate RIGHT foraminal stenosis. L1-L2: Facet joint arthritis with mild foraminal narrowing. L2-L3: Mild annular disc bulging, marked ligamentum flavum and facet arthritis. Fluid in the facet daina ints. Moderate to severe RIGHT foraminal, moderate LEFT foraminal and mild central stenosis. L3-L4: Marked annular disc bulging with ligamentum flavum and facet arthritis. Moderate to severe altaf ateral foraminal stenosis. Mild central and subarticular recess stenosis. L4-L5: Marked annular disc bulging with osteophytic ridging. Severe facet joint arthritis and ligamen denzel flavum hypertrophy. Fluid in the facet joints. Severe central, bilateral subarticular recess and foraminal stenosis. There is significant disc contact on the L4 and L5 nerve roots. L5-S1: Marked annular disc bulging with marked ligamentum flavum and facet arthritis. Fluid in the fa cet joints. Severe central, bilateral subarticular recess and foraminal stenosis. Significant contact on the L5 and S1 nerve roots. Facet joint synovitis most significant on the RIGHT at L4-5 and L5-S1. MR/MR lumbar spine wo con* [id number] IMPRESSION: 1. 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 2. L3-4: Mild central and subarticular recess stenosis with moderate to severe bilateral foraminal stenosis. 3. L2-3: Moderate to severe RIGHT and moderate LEFT foraminal stenosis with mi ld central stenosis. 4. T11-12: Mild to moderate RIGHT foraminal stenosis. 5. Severe degenerative disc disease at L5-S1. No acute fractures.
== END 2024-03-31 06:52 | disposition home or self-care (01) ==
PROVIDERS: PCP Nurse Practitioner Family; Visit Provider Nurse Practitioner
DX: M50.30 Other cervical disc degeneration, unspecified cervical region (principal); M51.37 Other intervertebral disc degeneration, lumbosacral region; D18.09 Hemangioma of other sites; M47.814 Spondylosis without myelopathy or radiculopathy, thoracic region; M48.04 Spinal stenosis, thoracic region; M47.816 Spondylosis without myelopathy or radiculopathy, lumbar region; M48.061 Spinal stenosis, lumbar region without neurogenic claudication; M51.36 Other intervertebral disc degeneration, lumbar region; M25.78 Osteophyte, vertebrae; M48.07 Spinal stenosis, lumbosacral region; M47.817 Spondylosis without myelopathy or radiculopathy, lumbosacral region; M65.89 Other synovitis and tenosynovitis, multiple sites
CPT/HCPCS: 72148

== ENCOUNTER → 2024-12-22 13:54 | Outpatient (BNVA) | payer MEDICARE, OTHER, SELFPAY | PROVIDERS: PCP Nurse Practitioner Family; Visit Provider Internal Medicine | DX: E11.9 Type 2 diabetes mellitus without complications (principal); I11.0 Hypertensive heart disease with heart failure; I50.30 Unspecified diastolic (congestive) heart failure; Z79.84 Long term (current) use of oral hypoglycemic drugs | CPT/HCPCS: 99213 ==